=== PATIENT | male | born 1995 | race Caucasian/White ===

== ENCOUNTER 2017-09-23 14:06 | Emergency (ER) | payer BC, OTHER ==
[~2017-09-23] VITALS: Ht 172.7 cm; Wt 146.0 kg
[~2017-09-23 14:06] MED LIST: ABL/15 PO; HYDR50CA2 PO; OXYC-57 PO; TOPI200T20 PO
[2017-09-23 14:12] VITALS: Ht 172.7 cm; Wt 146.0 kg
[2017-09-23 15:39] LABS: HEMATOCRIT 45.6 % (42-52); MEAN CORPUSCULAR HEMOGLOBIN 30.9 pg (25-34); MEAN CORPUSCULAR HGB CONC 35.1 g/dl (32-36); MEAN PLATELET VOLUME 8.7 fL (7.4-10.4); PLATELET COUNT 266 K/uL (130-400); RED CELL DISTRIBUTION WIDTH CV 13.4 % (11.5-14.5); RED CELL DISTRIBUTION WIDTH SD 43.4 fL (36.4-46.3); WHITE BLOOD COUNT 12.15 K/uL (4.8-10.8)
[2017-09-23 15:57] LABS: ALBUMIN 3.9 gm/dl (3.4-5.0); ALT/SGPT 58 U/L (12-78); BLOOD UREA NITROGEN 14 mg/dl (7-18); CALCIUM 8.7 mg/dl (8.5-10.1); CARBON DIOXIDE 21 mmol/L (21-32); CREATININE 0.97 mg/dl (0.60-1.40); GLUCOSE 119 mg/dl (70-99); POTASSIUM 3.7 mmol/L (3.5-5.1); SODIUM 139 mmol/L (136-145)
[2017-09-23 16:08] LABS: ALKALINE PHOSPHATASE 63 U/L (45-117); AST/SGOT 22 U/L (15-37); TOTAL PROTEIN 7.9 gm/dl (6.4-8.2)
[2017-09-23 17:55] VITALS: BP 167/82; PULSE 80; O2SAT 96
--- NOTE | 2017-10-06 17:46 | EMERGENCY ROOM VISIT NOTE ---
History Report prepared by Phylicia: Renato Humphries Under the Supervision of: Dr. Marco Thorne M.D. First contact with patient: 14:54 Chief Complaint: MENTAL HEALTH EVALUATION Stated Complaint: PARANOIA History of Present Illness The patient is a 22 year old male who presents to the Emergency Room with complaints of worsening paranoia beginning a few years ago. The patient states he has been experiencing paranoia for the past few years, but it has worsened over the last month. He reports he hears auditory hallucinations that are not threatening but tell him bad things about other people. The patient notes he will hear voices talking to him in [place]. He denies suicidal ideations, homicidal ideations, and missing a dose of his medication. The patient states he tried taking supplements such as Clear Muscle, Muscle Tech, and Muscle Builder a month ago, but he stopped a week ago because he they were causing his symptoms to worsen. He reports they did not have creatine in them because it used to make him angry. The patient notes about 6 days ago he stopped abusing Benadryl. He states he would take a whole box of 36 pills at one time to get high. The patient reports he does not abuse any other medication. He notes he has been having headaches but he has a history of migraines. He denies any trauma. The patient states he has a history of a left testicular cyst that causes him discomfort. He reports he drank alcohol a week ago. The patient denies fevers. The patient's girlfriend states he has a history of schizo-affective disorder and bipolar disorder. She reports the soonest the patient could be evaluated by his psychologist would be in two weeks. The girlfriend notes the patient has not seen his psychologist since the onset of this paranoia. She states he accuses her of doing thing she didn't such as talking to somebody on Facebook. The girlfriend reports he hears things in the ceiling that are not there. Source of History: patient, spouse/significant other Onset: few years ago Position: other (global) Quality: other (paranoia) Timing: worsening (over the past month) Associated Symptoms: + headache, No fevers Note: Associated symptoms: auditory hallucination Denies: SI, HI, and missing a dose of medication Review of Systems See HPI for pertinent positives & negatives. A total of 10 systems reviewed and were otherwise negative. Past Medical & Surgical Medical Problems: (1) Alcohol Abuse-Unspec (2) Bipolar disorder (3) Cannabis Abuse-Unspec (4) Suicidal Ideation (5) Tobacco Use Disorder Surgical Problems: (1) History of tonsillectomy Family History Diabetes mellitus Heart disease Hypertension Social History Smoking Status: Current Every Day Smoker Alcohol Use: heavy Drug Use: marijuana Marital Status: single Housing Status: lives with friends Occupation Status: unemployed Current/Historical Medications Scheduled Aripiprazole (Abilify), 15 MG PO DAILY Topiramate (Topamax), 200 MG PO BID Allergies Coded Allergies: No Known Allergies (Unverified , 09/23/17) Physical Exam Vital Signs Date Time Temp Pulse Resp B/P (MAP) Pulse Ox O2 Delivery O2 Flow Rate FiO2 09/23/17 17:55 80 16 167/82 96 09/23/17 17:01 78 16 142/69 99 Room Air Physical Exam Constitutional: Vital signs reviewed. Eyes: Pupils are equal round reactive to light. Conjunctiva are noninjected. ENT: Pharynx is clear without erythema or exudate. Mucous membranes are moist. Neck supple without meningeal signs. Respiratory: Clear to auscultation bilaterally. Breath sounds are equal bilaterally. Cardiovascular: Regular rate and rhythm. No rubs or gallops. GI: Soft, nondistended and nontender. Bowel sounds are present. Musculoskeletal: No peripheral edema. No lower extremity tenderness. Integumentary: No cyanosis. Neurological: The patient is awake and alert. No focal deficits. Psychiatric: Anxious, flattened affect. Medical Decision & Procedures Laboratory Results 09/23/17 15:27 09/23/17 15:27 Test 09/23/17 14:20 09/23/17 15:27 Urine Opiates Screen NEG (NEG) Urine Methadone, Qualitative NEG (NEG) Urine Barbiturates NEG (NEG) Urine Phencyclidine (PCP) Level NEG (NEG) Ur Amphetamine/Methamphetamine NEG (NEG) MDMA (Ecstasy) Screen NEG (NEG) Urine Benzodiazepines Screen NEG (NEG) Urine Cocaine Metabolite NEG (NEG) Urine Marijuana (THC) NEG (NEG) Red Blood Count 5.18 M/uL (4.7-6.1) Mean Corpuscular Volume 88.0 fL (80-100) Mean Corpuscular Hemoglobin 30.9 pg (25-34) Mean Corpuscular Hemoglobin Concent 35.1 g/dl (32-36) RDW Standard Deviation 43.4 fL (36.4-46.3) RDW Coefficient of Variation 13.4 % (11.5-14.5) Mean Platelet Volume 8.7 fL (7.4-10.4) Anion Gap 6.0 mmol/L (3-11) Est Creatinine Clear Calc Drug Dose 166.6 ml/min Estimated GFR () 127.0 Estimated GFR (Non- 109.6 BUN/Creatinine Ratio 14.9 (10-20) Calcium Level 8.7 mg/dl (8.5-10.1) Total Bilirubin 0.3 mg/dl (0.2-1) Direct Bilirubin < 0.1 mg/dl (0-0.2) Aspartate Amino Transf (AST/SGOT) 22 U/L (15-37) Alanine Aminotransferase (ALT/SGPT) 58 U/L (12-78) Alkaline Phosphatase 63 U/L (45-117) Total Protein 7.9 gm/dl (6.4-8.2) Albumin 3.9 gm/dl (3.4-5.0) Thyroid Stimulating Hormone (TSH) 1.160 uIu/ml (0.300-4.500) Salicylates Level 2.6 mg/dl (2.8-20) Acetaminophen Level < 2 ug/ml (10-30) Ethyl Alcohol mg/dL < 3.0 mg/dl (0-3) Laboratory results as reviewed by me. ECG Indication: other (Antihistamine abuse) Rate (beats per minute): 88 Rhythm: normal sinus Findings: no ectopy, other (No widening of the QRS) ED Course 1458: The patient was evaluated in room A06. A complete history and physical exam was performed. 1739: Mental health case management evaluated the patient. He does not meet any criteria for admission. His paranoia is not dangerous, and he has not command hallucinations. He was able to get an appointment with [facility] today, but as they were pulling into the parking lot, they cancelled the appointment. I discussed today's findings with him. He and his girlfriend verbalized agreement of the treatment plan. The patient was discharged home. Medical Decision This is a 22-year-old male who presents for mental health evaluation. I did perform a limited focused review of portions of the patient's old chart on the electronic medical record. The patient has had no recent pertinent visits to this hospital. I did evaluate the patient as noted above. I did order and review the patient's blood work as noted in the electronic medical record. I did medically clear the patient. The patient is presenting with chronic paranoid thoughts and auditory hallucinations. He has had no suicidal or homicidal ideation. He was evaluated by the mental health caser who did not feel the patient met requirement for inpatient psychiatric care. She was able to secure him an appointment with [facility]. The patient was discharged in good condition. Impression Primary Impression: Schizoaffective disorder, unspecified condition Scribe Attestation The scribe's documentation has been prepared under my direct and personally reviewed by me in its entirety. I confirm that the note above accurately reflects all work, treatment, procedures, and medical decision making performed by me. Departure Information Dispostion Home / Self-Care Referrals No Doctor, Assigned (PCP) Forms HOME CARE DOCUMENTATION FORM, IMPORTANT VISIT INFORMATION Patient Instructions My [facility] Additional Instructions You have been examined and treated today on an emergency basis only. This is not a substitute for, or an effort to provide, complete comprehensive medical care. It is impossible to recognize and treat all injuries or illnesses in a single emergency department visit. It is therefore important that you follow up closely with your counselor. Call as soon as possible for an appointment. Return for worsening symptoms or if you develop thoughts of hurting yourself or others or any other concerning symptoms.
== END 2017-09-23 17:57 | disposition home or self-care (01) ==
LOC: C.EDB 14:08 → C.EDA 17:57
DX: F25.9 Schizoaffective disorder, unspecified (principal); F31.9 Bipolar disorder, unspecified; F17.200 Nicotine dependence, unspecified, uncomplicated; Z98.890 Other specified postprocedural states; Z79.899 Other long term (current) drug therapy; Z83.3 Family history of diabetes mellitus; Z82.49 Family history of ischemic heart disease and other diseases of the circulatory system

== ENCOUNTER → 2017-10-13 | Outpatient (CLI) | payer BC, OTHER ==
[~2017-10-13] MED LIST changes: -HYDR50CA2 PO; -OXYC-57 PO
== END | disposition home or self-care (01) ==
LOC: C.LABSPEC 17:10
PROVIDERS: ATTEND Nurse Practitioner Adult Health
DX: N45.1 Epididymitis (principal)

== ENCOUNTER → 2017-10-19 | Outpatient (CLI) | payer BC, OTHER ==
--- NOTE | 2017-10-19 11:48 | DIAGNOSTIC IMAGING REPORT ---
ABDOMEN COMPLETE (US) CLINICAL HISTORY: 22 years-old Male presenting with TESTICULAR PAIN [id number], bleeding. TECHNIQUE: Real-time grayscale and limited color Doppler ultrasound imaging of the abdomen was performed. COMPARISON: None. FINDINGS: Pancreas: Visualized portions of the pancreatic head and body normal. Liver: Moderately hyperechogenic parenchyma with partial obscuration of the right hemidiaphragm, likely indicating moderate steatosis. Hypoechoic echogenicity of the gallbladder fossa likely fatty sparing. Main portal vein patent with normal directional flow. Biliary: No intrahepatic biliary ductal dilatation. Common bile duct measures up to 5 mm in diameter. Gallbladder: No evidence of gallstones, gallbladder wall thickening, gallbladder distention, or pericholecystic fluid or inflammatory change. Spleen: Normal in echogenicity and size, measuring 12.5 cm in length. Kidneys: Normal in size and echogenicity. Right kidney measures 12.8 cm, and left kidney measures 12.1 cm. No hydronephrosis. Bladder: Under distended. Ureteral jets not visualized. Vasculature: Visualized portions of the IVC and abdominal aorta normal. Overall limited visualization of the aorta secondary to bowel gas. Ascites: None. IMPRESSION: 1. Hepatic steatosis. 2. Otherwise normal sonographic examination of the abdomen. Electronically signed by: Braden Cardoza M.D. 10/19/2017 11:46 AM Dictated Date/Time: 10/19/2017 11:44 AM
--- NOTE | 2017-10-19 11:49 | DIAGNOSTIC IMAGING REPORT ---
TESTICULAR ULTRASOUND HISTORY: TESTICULAR PAIN [id number] COMPARISON: Testicular ultrasound 09/14/2016. FINDINGS: Right testis: 4.4 x 3.1 x 2.1 cm. There are no intratesticular masses. Normal color flow. No hydrocele. The epididymis demonstrates a 5 mm cyst at the head. This remains unchanged. Left testis: 4.5 x 2.9 x 2.1 cm. There are no intratesticular masses. Normal color flow. No hydrocele. A 2 mm cyst within the epididymal head. IMPRESSION: 1. Normal bilateral testes. 2. Small bilateral abnormal head cyst. Electronically signed by: Choco Schroeder M.D. 10/19/2017 11:48 AM Dictated Date/Time: 10/19/2017 11:42 AM
== END | disposition home or self-care (01) ==
LOC: C.ULTR 10:04
PROVIDERS: ATTEND Nurse Practitioner Adult Health
DX: N50.819 Testicular pain, unspecified (principal)

== ENCOUNTER 2017-10-23 21:32 | Emergency (ER) | payer BC, OTHER ==
[~2017-10-23] VITALS: Ht 172.7 cm; Wt 149.6 kg
[2017-10-23 21:35] VITALS: TEMP 36.9; Ht 172.7 cm; Wt 149.6 kg
[2017-10-23 22:27] LABS: BASO % 0.3 %; BASO ABS # 0.04 K/uL (0-0.2); EOS % 2.5 %; EOS ABS # 0.34 K/uL (0-0.5); IG# 0.07 K/uL (0.00-0.02); LYMPH % 27.3 %; LYMPH ABS # 3.67 K/uL (1.2-3.4); MEAN CELL VOLUME 87.6 fL (80-100); MEAN CORPUSCULAR HEMOGLOBIN 30.5 pg (25-34); MEAN CORPUSCULAR HGB CONC 34.8 g/dl (32-36); MEAN PLATELET VOLUME 8.8 fL (7.4-10.4); MONO % 4.9 %; MONO ABS # 0.66 K/uL (0.11-0.59); NEUT % 64.5 %; NEUT ABS # 8.65 K/uL (1.4-6.5); PLATELET COUNT 252 K/uL (130-400); RED CELL DISTRIBUTION WIDTH CV 13.3 % (11.5-14.5); RED CELL DISTRIBUTION WIDTH SD 42.2 fL (36.4-46.3); WHITE BLOOD COUNT 13.43 K/uL (4.8-10.8)
[2017-10-23 23:00] LABS: ALBUMIN 4.1 gm/dl (3.4-5.0); BLOOD UREA NITROGEN 18 mg/dl (7-18); CALCIUM 9.1 mg/dl (8.5-10.1); CARBON DIOXIDE 20 mmol/L (21-32); CREATININE 1.02 mg/dl (0.60-1.40); GLUCOSE 102 mg/dl (70-99); POTASSIUM 3.7 mmol/L (3.5-5.1); SODIUM 141 mmol/L (136-145)
[2017-10-23 23:10] LABS: ALKALINE PHOSPHATASE 72 U/L (45-117); ALT/SGPT 56 U/L (12-78); AST/SGOT 25 U/L (15-37); TOTAL PROTEIN 8.3 gm/dl (6.4-8.2)
--- NOTE | 2017-10-23 23:20 | EMERGENCY ROOM VISIT NOTE ---
History Report prepared by Phylicia: Eduardo Nolasco Under the Supervision of: Dr. Leo Coello M.D. First contact with patient: 21:45 Chief Complaint: MENTAL HEALTH EVALUATION Stated Complaint: SUICIDAL History of Present Illness The patient is a 22 year old white male with a past medical history of schizophrenia and bipolar disorder who presents to the ED with a cc of worsening depression beginning 5 days ago. Positive smoking and tobacco use. Negative alcohol use. The patient states that he went to see his psychiatrist 5 days ago who wanted to increase his medication. He reports that he wanted to decrease his medication of Abilify and Topamax, which he has been doing. The patient is accompanied by his girlfriend who states that the psychiatrist told him to get checked into inpatient if his symptoms worsen. The patient states that he has been taking half of his normal amount of medication this week. He reports that he has been hearing voices that are not there. The patient states that at times there are more than one voice. He reports that someone could actually be talking, but he would hear someone else. The patient states that he has also been feeling more depressed. He reports that he does not feel safe, but denies a plan for suicide. The patient admits that he tried to hurt himself in the past by trying to cut his throat after abusing Adderall and alcohol. Source of History: patient, spouse/significant other Onset: 5 days ago Position: other (global) Quality: other (global) Timing: worsening Modifying Factors (Relieving): other (Abilify, Topamax) Review of Systems See HPI for pertinent positives and negatives. A total of ten systems were reviewed and were otherwise negative. Past Medical & Surgical Medical Problems: (1) Alcohol Abuse-Unspec (2) Bipolar disorder (3) Cannabis Abuse-Unspec (4) Suicidal Ideation (5) Tobacco Use Disorder Surgical Problems: (1) History of tonsillectomy Family History Diabetes mellitus Heart disease Hypertension Social History Smoking Status: Current Every Day Smoker Alcohol Use: heavy Drug Use: marijuana Marital Status: single Housing Status: lives with friends Occupation Status: unemployed Current/Historical Medications Scheduled Aripiprazole (Abilify), 7.5 MG PO DAILY Topiramate (Topamax), 100 MG PO BID Allergies Coded Allergies: No Known Allergies (Unverified , 10/23/17) Physical Exam Vital Signs Date Time Temp Pulse Resp B/P (MAP) Pulse Ox O2 Delivery O2 Flow Rate FiO2 10/23/17 21:35 36.9 84 18 149/93 98 Room Air Physical Exam GENERAL: Awake, alert, well-appearing, NAD, obese, multiple tattoos HENT: Normocephalic, atraumatic. EYES: Normal conjunctiva. Sclera non-icteric. NECK: Supple. No nuchal rigidity. FROM. RESPIRATORY: CTAB, no rhonchi, wheezing, crackles CARDIAC: RRR, no MRG ABDOMEN: Soft, NTND, BS+ MSK: No chest wall TTP, no LE edema NEURO: GCS 15, CN 2-12 intact, moves all 4s on command SKIN: No rash or jaundice noted. PSYCH: Slow to respond. Limited attention. SI without plan. No HI. Positive AVH. Medical Decision & Procedures Laboratory Results 10/23/17 12:08 Red Blood Count 5.25, Mean Corpuscular Volume 87.6, Mean Corpuscular Hemoglobin 30.5, Mean Corpuscular Hemoglobin Concent 34.8, Mean Platelet Volume 8.8, Neutrophils (%) (Auto) 64.5, Lymphocytes (%) (Auto) 27.3, Monocytes (%) (Auto) 4.9, Eosinophils (%) (Auto) 2.5, Basophils (%) (Auto) 0.3, Neutrophils # (Auto) 8.65, Lymphocytes # (Auto) 3.67, Monocytes # (Auto) 0.66, Eosinophils # (Auto) 0.34, Basophils # (Auto) 0.04 10/23/17 22:18 Test 10/23/17 12:08 10/23/17 22:10 10/23/17 22:17 10/23/17 22:18 White Blood Count 13.43 K/uL (4.8-10.8) Red Blood Count 5.25 M/uL (4.7-6.1) Hemoglobin 16.0 g/dL (14.0-18.0) Hematocrit 46.0 % (42-52) Mean Corpuscular Volume 87.6 fL (80-100) Mean Corpuscular Hemoglobin 30.5 pg (25-34) Mean Corpuscular Hemoglobin Concent 34.8 g/dl (32-36) Platelet Count 252 K/uL (130-400) Mean Platelet Volume 8.8 fL (7.4-10.4) Neutrophils (%) (Auto) 64.5 % Lymphocytes (%) (Auto) 27.3 % Monocytes (%) (Auto) 4.9 % Eosinophils (%) (Auto) 2.5 % Basophils (%) (Auto) 0.3 % Neutrophils # (Auto) 8.65 K/uL (1.4-6.5) Lymphocytes # (Auto) 3.67 K/uL (1.2-3.4) Monocytes # (Auto) 0.66 K/uL (0.11-0.59) Eosinophils # (Auto) 0.34 K/uL (0-0.5) Basophils # (Auto) 0.04 K/uL (0-0.2) RDW Standard Deviation 42.2 fL (36.4-46.3) RDW Coefficient of Variation 13.3 % (11.5-14.5) Immature Granulocyte % (Auto) 0.5 % Immature Granulocyte # (Auto) 0.07 K/uL (0.00-0.02) Urine Color YELLOW Urine Appearance CLEAR (CLEAR) Urine pH 5.0 (4.5-7.5) Urine Specific [place] 1.030 (1.000-1.030) Urine Protein NEG (NEG) Urine Glucose (UA) NEG (NEG) Urine Ketones NEG (NEG) Urine Occult Blood NEG (NEG) Urine Nitrite NEG (NEG) Urine Bilirubin NEG (NEG) Urine Urobilinogen NEG (NEG) Urine Leukocyte Esterase NEG (NEG) Urine Opiates Screen NEG (NEG) Urine Methadone, Qualitative NEG (NEG) Urine Barbiturates NEG (NEG) Urine Phencyclidine (PCP) Level NEG (NEG) Ur Amphetamine/Methamphetamine NEG (NEG) MDMA (Ecstasy) Screen NEG (NEG) Urine Benzodiazepines Screen NEG (NEG) Urine Cocaine Metabolite NEG (NEG) Urine Marijuana (THC) NEG (NEG) Bedside Glucose 115 mg/dl (70-99) Anion Gap 9.0 mmol/L (3-11) Est Creatinine Clear Calc Drug Dose 160.7 ml/min Estimated GFR () 119.5 Estimated GFR (Non- 103.1 BUN/Creatinine Ratio 17.5 (10-20) Calcium Level 9.1 mg/dl (8.5-10.1) Total Bilirubin 0.3 mg/dl (0.2-1) Direct Bilirubin < 0.1 mg/dl (0-0.2) Aspartate Amino Transf (AST/SGOT) 25 U/L (15-37) Alanine Aminotransferase (ALT/SGPT) 56 U/L (12-78) Alkaline Phosphatase 72 U/L (45-117) Total Protein 8.3 gm/dl (6.4-8.2) Albumin 4.1 gm/dl (3.4-5.0) Thyroid Stimulating Hormone (TSH) 2.410 uIu/ml (0.300-4.500) Salicylates Level 2.9 mg/dl (2.8-20) Acetaminophen Level < 2 ug/ml (10-30) Ethyl Alcohol mg/dL < 3.0 mg/dl (0-3) Laboratory results reviewed by mt ED Course 2158: The patient was evaluated in room A02. A complete history and physical exam was performed. 0015: The patient is medically clear for voluntary admission. 0230: The patient was signed out to Dr. Koroma. Medical Decision Triage Nursing notes reviewed. The patient is a 22 year old white male with a past medical history of schizophrenia and bipolar disorder who presents to the ED with a cc of worsening depression beginning 5 days ago. The patient's presentation and history were concerning for etiologies such as mood disorder, infection, hypoglycemia, electrolyte abnormalities, cardiac sources, intracerebral event, toxicologic, neurologic, as well as others were entertained. Patient was seen and evaluated the bedside. Patient does have a prior history of mental health disorders and the patient has tried to decrease medications even though his psychiatrist recommended not to. Patient does have a flattened affect does have some issues with attention. Patient does use tobacco. Patient is complaining of suicidal ideation but without plan. He does have audio and visual hallucinations. Patient did have blood work completed along with urinalysis and tox screen. Patient's blood work is fairly unremarkable and the patient's tox screen is negative. He was medically cleared. Patient was accepted to the [facility] for voluntary inpatient psychiatric treatment. Patient was transferred. Medication Reconcilliation Current Medication List: was personally reviewed by mt Blood Pressure Screening Patient's blood pressure: Elevated blood pressure Blood pressure disposition: Elevated BP felt to be situational Impression Primary Impression: Suicidal ideation Additional Impressions: Depression Encounter for smoking cessation counseling Scribe Attestation The scribe's documentation has been prepared under my direction and personally reviewed by me in its entirety. I confirm that the note above accurately reflects all work, treatment, procedures, and medical decision making performed by me. Departure Information Dispostion Discharge/Transfer to [facility] Referrals No Doctor, Assigned (PCP) Patient Instructions My [facility] Problem Qualifiers Additional Impressions: Depression Depression Type: unspecified Qualified Codes: F32.9 - Major depressive disorder, single episode, unspecified
[2017-10-24 02:00] VITALS: BP 134/87; PULSE 71; O2SAT 97
== END 2017-10-24 02:02 | disposition short-term general hospital (02) ==
LOC: C.EDB 21:33 → C.EDA 10-24 02:02
DX: R45.851 Suicidal ideations (principal); F25.9 Schizoaffective disorder, unspecified; F31.9 Bipolar disorder, unspecified; F32.9 Major depressive disorder, single episode, unspecified; F17.200 Nicotine dependence, unspecified, uncomplicated; F12.90 Cannabis use, unspecified, uncomplicated; Z79.899 Other long term (current) drug therapy

== ENCOUNTER 2017-11-21 17:55 | Emergency (ER) | payer BC, OTHER ==
[~2017-11-21] VITALS: Ht 174 cm; Wt 148.9 kg
[2017-11-21 17:58] VITALS: TEMP 37; Ht 174 cm; Wt 148.9 kg
--- NOTE | 2017-11-21 18:34 | EMERGENCY ROOM VISIT NOTE ---
History Report prepared by Phylicia: Em Liriano Under the Supervision of: Dr. Leo Coello M.D. First contact with patient: 18:03 Chief Complaint: OVERDOSE (INTENTIONAL) Stated Complaint: TOOK TOO MUCH MEDICATIONS, MOOD SWINGS History of Present Illness The patient is a 22 year old white male with a past medical history of alcohol abuse, BPD, and illicit drug use who presents to the ED with complaints of persistent drug abuse since four days ago. Positive for auditory hallucinations. Negative thoughts of self harm or thoughts of harming others. He states that he took 20 tablets of 1 mg Ativan yesterday at 0200. He also reports taking 8 tablets of 25 mg Benadryl before 1200 today. He reports taking Flexeril as well. He denies any thoughts of self harm or thoughts of harming others. He denies any use of Ibuprofen. He recalls hearing his father this morning. He states that what he is hearing is positive and not negative voices. He denies any pain. He denies any leg swelling. He recently left the [facility] two weeks ago. Per case management the patient inhaled Ativan and Flexeril intranasally four days ago. Source of History: patient Onset: four days ago Position: other (global ) Quality: other (drug abuse) Timing: other (persistent) Note: Notes auditory hallucinations. Denies any thoughts of self harm or thoughts of harming others. Denies any pain or leg swelling. Review of Systems See HPI for pertinent positives and negatives. A total of ten systems were reviewed and were otherwise negative. Past Medical & Surgical Medical Problems: (1) Alcohol Abuse-Unspec (2) Bipolar disorder (3) Cannabis Abuse-Unspec (4) Suicidal Ideation (5) Tobacco Use Disorder Surgical Problems: (1) History of tonsillectomy Family History Diabetes mellitus Heart disease Hypertension Social History Smoking Status: Current Every Day Smoker Alcohol Use: heavy Drug Use: marijuana, other (Ativan/Flexeril/Benadryl) Marital Status: in relationship Housing Status: lives with significant other Occupation Status: unemployed Current/Historical Medications Scheduled Topiramate (Topamax), 200 MG PO BID [Prolixin], 1 TAB PO BID Allergies Coded Allergies: No Known Allergies (Unverified , 11/21/17) Physical Exam Vital Signs Date Time Temp Pulse Resp B/P (MAP) Pulse Ox O2 Delivery O2 Flow Rate FiO2 11/21/17 19:38 99 23 136/76 96 11/21/17 18:35 97 Room Air 11/21/17 18:26 105 11/21/17 17:58 37.0 110 20 153/87 95 Room Air Physical Exam GENERAL: Awake, alert, well-appearing, NAD. Obese. HENT: Normocephalic, atraumatic. EYES: Normal conjunctiva. Sclera non-icteric. NECK: Supple. No nuchal rigidity. FROM. RESPIRATORY: CTAB, no rhonchi, wheezing, crackles CARDIAC: Tachycardic and regular rhythm, no MRG ABDOMEN: Soft, NTND, BS+ MSK: No chest wall TTP, no LE edema NEURO: GCS 15, CN 2-12 intact, moves all 4s on command SKIN: No rash or jaundice noted. PSYCH: Flat affect. Monotone voice. Occasionally tearful. Medical Decision & Procedures ED Course 1818: The patient was evaluated in room A8. A complete history and physical exam was performed. 1914: I spoke with Kenyon, Psychiatric Development Geologist. We discussed the patient's case. He stated that the the patient does not meet any acute inpatient treatment needs. The patient will be discharged home. Medical Decision The patient is a 22 year old white male with a past medical history of alcohol abuse, BPD, and illicit drug use who presents to the ED with complaints of persistent drug abuse since four days ago. Prior records/ancillary studies reviewed. Triage Nursing notes reviewed. The patient's history was concerning for possible psychiatric disturbance. Differential diagnosis: Etiologies such as mood disorder, infection, hypoglycemia, electrolyte abnormalities, cardiac sources, intracerebral event, toxicologic, neurologic, as well as others were entertained. Patient was seen and evaluated the bedside. Patient is a 22-year-old does have a known psychiatric history. Purportedly the patient did snort Ativan yesterday. The patient also noted taking 8 Benadryl tablets around noon. 25 mg. Patient denies any acute symptomatical complaints. Patient denies any visual hallucinations, SI, or HI. The patient does state that he occasionally does hear his father and it is usually positive words. They are not negative words. The patient is about 12 days out from a recent 16 day inpatient stay at the [facility]. Given his lack of acute concerns for harm to self other than his drug abuse, patient does not state that he has any suicidal ideation even passively. We did discuss that the patient should not abuse his medications but she should use them as prescribed and to help him. The mental health specialist did also evaluate the patient. The mental specialists stated that the patient did not meet any acute inpatient treatment needs. The patient repeatedly denied any SI or HI. The girlfriend at bedside also stated that the patient has not had any SI or HI since his discharge from from the [facility]. Follow-up patient did suddenly release and his paperwork will be sent to his primary psychiatrist in order to inform them that the patient is abusing his medications. The patient was told to stop doing this. Patient was deemed suitable for outpatient follow-up and treatment at this time. Patient was given strict follow-up, discharge, and return precautions. All questions were answered. Patient was deemed suitable for outpatient follow-up at this time. Patient agreed with the plan of care and was safely discharged home. Medication Reconcilliation Current Medication List: was personally reviewed by me Blood Pressure Screening Patient's blood pressure: Elevated blood pressure Blood pressure disposition: Referred to PCP Impression Primary Impression: Drug abuse Scribe Attestation The scribe's documentation has been prepared under my direction and personally reviewed by me in its entirety. I confirm that the note above accurately reflects all work, treatment, procedures, and medical decision making performed by me. Departure Information Dispostion Home / Self-Care Referrals No Doctor, Assigned (PCP) Forms HOME CARE DOCUMENTATION FORM, IMPORTANT VISIT INFORMATION, WORK / SCHOOL INSTRUCTIONS Patient Instructions ED Drug Abuse General, [facility] Additional Instructions Please return to the emergency department if you have worsening or recurrent symptoms not amenable to at-home treatment. Please call for a follow-up appointment with her primary care physician. Please take your medications as prescribed. If you have other concerns and/or complaints please feel free to also call your primary care physician's office or return the ED for further evaluation, management, and treatment. You were found to have an elevated blood pressure today (>120 sytolic or >90 diastolic). Per medicare guidelines, you need to follow up with this blood pressure screening with your Primary Care Physician (PCP). For a new PCP call [phone]. Take your medications as prescribed. Please do not abuse them. You have been examined and treated today on an emergency basis only. This is not a substitute for, or an effort to provide, complete comprehensive medical care. It is impossible to recognize and treat all injuries or illnesses in a single emergency department visit. It is therefore important that you follow up closely with [facility], your PCP, and/or your specialist(s). Call as soon as possible for an appointment. Thank you for your time and consideration. I look forward to speaking with you again soon. Please don't hesitate to call us if you have any questions.
[2017-11-21 18:35] VITALS: O2SAT 97
[2017-11-21] MEDS ORDERED: PROLIXIN PO (19:18)
[2017-11-21 19:38] VITALS: BP 136/76; PULSE 99; O2SAT 96
== END 2017-11-21 19:39 | disposition home or self-care (01) ==
LOC: C.EDB 17:56 → C.EDA 19:39
DX: F19.10 Other psychoactive substance abuse, uncomplicated (principal); R03.0 Elevated blood-pressure reading, without diagnosis of hypertension; F10.10 Alcohol abuse, uncomplicated; F31.9 Bipolar disorder, unspecified; F12.10 Cannabis abuse, uncomplicated; F17.200 Nicotine dependence, unspecified, uncomplicated; Z86.59 Personal history of other mental and behavioral disorders

== ENCOUNTER 2017-11-24 11:38 | Emergency (ER) | payer BC, OTHER ==
[~2017-11-24] VITALS: Ht 172.7 cm; Wt 145.0 kg
[~2017-11-24 11:38] MED LIST changes: -ABL/15 PO; +PROLIXIN PO
[2017-11-24 11:42] VITALS: BP 178/95; TEMP 36.8; Ht 172.7 cm; Wt 145.0 kg
[2017-11-24] MEDS ORDERED: DIVA500T5 PO (12:01)
[2017-11-24] MEDS ORDERED: PRAZ1CAP PO (12:01)
[2017-11-24] MEDS ORDERED: PERP4TAB37 PO (12:01)
--- NOTE | 2017-11-24 13:37 | EMERGENCY ROOM VISIT NOTE ---
History Report prepared by Phylicia: Tani Shoemaker Under the Supervision of: Dr. Leo Coello M.D. First contact with patient: 11:52 Chief Complaint: MENTAL HEALTH EVALUATION Stated Complaint: MEDS ACTING UP MANIC EPISODE History of Present Illness The patient is a 22 year old white male with a past medical history of bipolar disorder who presents to the ED with a violent outburst episode this morning. Positive constipation. Negative suicidal or homicidal ideations, hallucinations , chest pain, abdominal pain, urinary symptoms. Per the psych case supervisor, the patient was seen here 3 days ago after he snorted Ativan and took 8 of his significant other's Flexeril. The patient says that it was not a suicide attempt , but just wanted to "relax". He was recently sent home from the [facility] 2 days ago, and was prescribed Topamax 200 mg BID and Prolixin 10 mg BID. He has been taking those medications. Per the patient's significant other, the patient "flipped out" this morning at home and broke a cedar chest. The patient says that he is here in order to receive something that will calm him down. The patient states that he currently "feels weird". Source of History: patient, spouse/significant other, other (psych case supervisor) Onset: This morning Position: other (global) Symptom Intensity: broke cedar chest Quality: other (violent outburst) Timing: other (episode) Associated Symptoms: No chest pain, No abdominal pain, No urinary symptoms Note: Positive constipation. Negative SI or HI, hallucinations. Review of Systems See HPI for pertinent positives and negatives. A total of ten systems were reviewed and were otherwise negative. Past Medical & Surgical Medical Problems: (1) Alcohol Abuse-Unspec (2) Bipolar disorder (3) Cannabis Abuse-Unspec (4) Suicidal Ideation (5) Tobacco Use Disorder Surgical Problems: (1) History of tonsillectomy Family History Diabetes mellitus Heart disease Hypertension Social History Smoking Status: Current Every Day Smoker Alcohol Use: heavy Drug Use: marijuana, other Marital Status: in relationship Housing Status: lives with significant other Occupation Status: unemployed Current/Historical Medications Scheduled Divalproex Sodium (Depakote Delay Rel), 500 MG PO TID Perphenazine (Trilafon), 4 MG PO BID Prazosin Hcl (Minipress), 1 MG PO HS Allergies Coded Allergies: No Known Allergies (Unverified , 11/21/17) Physical Exam Vital Signs Date Time Temp Pulse Resp B/P (MAP) Pulse Ox O2 Delivery O2 Flow Rate FiO2 11/24/17 11:42 36.8 92 18 178/95 95 Room Air Physical Exam GENERAL: Awake, alert, well-appearing, NAD HENT: Normocephalic, atraumatic. EYES: Normal conjunctiva. Sclera non-icteric. NECK: Supple. No nuchal rigidity. FROM. RESPIRATORY: CTAB, no rhonchi, wheezing, crackles CARDIAC: RRR, no MRG ABDOMEN: Obese, soft, NTND, BS+ MSK: No chest wall TTP, no LE edema NEURO: GCS 15, CN 2-12 intact, moves all 4s on command SKIN: No rash or jaundice noted. PSYCH: Flat affect. Medical Decision & Procedures ED Course 1332: The patient was evaluated in room A5. A complete history and physical exam was performed. Discussed results and discharge instructions: he verbalized understanding and agreement. The patient is ready for discharge. Medical Decision The patient is a 22 year old white male with a past medical history of bipolar disorder who presents to the ED with a violent outburst episode this morning. Positive constipation. Negative suicidal or homicidal ideations, hallucinations , chest pain, abdominal pain, urinary symptoms. Differential diagnosis: Etiologies such as medication noncompliance, mood disorder, infection, hypoglycemia, electrolyte abnormalities, cardiac sources, intracerebral event, toxicologic, neurologic, as well as others were entertained. Patient was seen and evaluated at the bedside. Patient was seen several days ago for using his medications. Today the patient denies any SI, HI, AVH. The patient is wanting something to keep him calm. On exam the patient is not agitated. The patient has a history of abusing his medications. No medications were given at this time. She was seen and evaluated by the psych case supervisor. Patient does have follow-up with psychiatry. It was expressed to the patient that given the recent change in his medications yesterday this will take time for it to take effect. Patient was deemed suitable for outpatient follow-up at this time. The patient does have a safe place to go and does have a person with him essentially at all times which is his girlfriend who is at the bedside. This was also conveyed to her. They are in agreement with the plan of care. Patient was given strict follow-up, discharge , and return precautions. All questions were answered. Patient was deemed suitable for outpatient follow-up at this time. Patient agreed with the plan of care and was safely discharged home. Medication Reconcilliation Current Medication List: was personally reviewed by me Blood Pressure Screening Patient's blood pressure: Elevated blood pressure Blood pressure disposition: Referred to PCP Impression Primary Impression: Medication dose changed Additional Impression: Agitation Scribe Attestation The scribe's documentation has been prepared under my direction and personally reviewed by me in its entirety. I confirm that the note above accurately reflects all work, treatment, procedures, and medical decision making performed by me. Departure Information Dispostion Home / Self-Care Referrals No Doctor, Assigned (PCP) Patient Instructions My [facility] Additional Instructions Please return to the emergency department if you have worsening or recurrent symptoms not amenable to at-home treatment. Please call for a follow-up appointment with her primary care physician. Please take your medications as prescribed. If you have other concerns and/or complaints please feel free to also call your primary care physician's office or return the ED for further evaluation, management, and treatment. You were found to have an elevated blood pressure today (>120 sytolic or >90 diastolic). Per medicare guidelines, you need to follow up with this blood pressure screening with your Primary Care Physician (PCP). For a new PCP call [phone]. Take your medications as prescribed. Please follow-up with your psychiatrist. You have been examined and treated today on an emergency basis only. This is not a substitute for, or an effort to provide, complete comprehensive medical care. It is impossible to recognize and treat all injuries or illnesses in a single emergency department visit. It is therefore important that you follow up closely with [facility], your PCP, and/or your specialist(s). Call as soon as possible for an appointment. Thank you for your time and consideration. I look forward to speaking with you again soon. Please don't hesitate to call us if you have any questions. Problem Qualifiers
[2017-11-24 14:28] VITALS: PULSE 82; O2SAT 99
== END 2017-11-24 14:29 | disposition home or self-care (01) ==
LOC: C.EDB 11:40 → C.EDA 14:29
DX: R45.1 Restlessness and agitation (principal); F31.9 Bipolar disorder, unspecified; F10.10 Alcohol abuse, uncomplicated; F12.10 Cannabis abuse, uncomplicated; F17.210 Nicotine dependence, cigarettes, uncomplicated; Z79.899 Other long term (current) drug therapy; Z83.3 Family history of diabetes mellitus; Z82.49 Family history of ischemic heart disease and other diseases of the circulatory system

== ENCOUNTER 2017-12-18 19:24 | Emergency (ER) | payer BC, OTHER ==
[~2017-12-18] VITALS: Ht 172.7 cm; Wt 131.3 kg
[~2017-12-18 19:24] MED LIST changes: +DIVA500T5 PO; +PERP4TAB37 PO; +PRAZ1CAP PO; -PROLIXIN PO; -TOPI200T20 PO
[2017-12-18 19:33] VITALS: TEMP 37; Ht 172.7 cm; Wt 131.3 kg
[2017-12-18] MEDS ORDERED: KETOROLAC TROMETHAMINE 30 MG/ML VIAL IV STA (19:52)
[2017-12-18] MEDS ORDERED: SODIUM CHLORIDE 0.9% 1000ML 1,000 ML IV STA (19:52)
[2017-12-18] MEDS ORDERED: PROP10TA7 PO (19:53)
[2017-12-18] MEDS ORDERED: DIVA500T3 PO ×2 (19:53)
[2017-12-18] MEDS ORDERED: PERP1TAB5 PO (19:53)
[2017-12-18 20:14] LABS: BASO % 0.3 %; BASO ABS # 0.03 K/uL (0-0.2); EOS % 2.7 %; EOS ABS # 0.28 K/uL (0-0.5); HEMATOCRIT 44.2 % (42-52); HEMOGLOBIN 14.8 g/dL (14.0-18.0); IG# 0.47 K/uL (0.00-0.02); LYMPH ABS # 2.39 K/uL (1.2-3.4); MEAN CELL VOLUME 89.7 fL (80-100); MEAN CORPUSCULAR HGB CONC 33.5 g/dl (32-36); MEAN PLATELET VOLUME 8.7 fL (7.4-10.4); MONO % 7.8 %; MONO ABS # 0.81 K/uL (0.11-0.59); NEUT % 61.7 %; NEUT ABS # 6.39 K/uL (1.4-6.5); PLATELET COUNT 197 K/uL (130-400); RED CELL DISTRIBUTION WIDTH CV 12.9 % (11.5-14.5); RED CELL DISTRIBUTION WIDTH SD 42.3 fL (36.4-46.3); WHITE BLOOD COUNT 10.37 K/uL (4.8-10.8)
--- NOTE | 2017-12-18 20:32 | EMERGENCY ROOM VISIT NOTE ---
History Report prepared by Phylicia: Agnes Camacho Under the Supervision of: Dr. Jorge Leon M.D. First contact with patient: 19:45 Chief Complaint: TESTICULAR PAIN Stated Complaint: EXTREME TESTICLE PAIN History of Present Illness The patient is a 22 year old male who presents to the Emergency Room with complaints of intermittent left testicular pain beginning last night. He rates his pain as a 9/10. The patient took Tylenol and ibuprofen with some relief. The patient reports he has a history of two cysts inside his scrotum by each testicle. He reports this was diagnosed via an ultrasound. The patient has an appointment with Dr. Islas-Urology on Wednesday. He reports some urinary burning and abdominal pain. Per girlfriends at bedside, the patient is on "several heavy medications" for his mental health history. Source of History: patient, spouse/significant other Onset: last night Position: other (testicular) Quality: other (pain) Timing: intermittent Associated Symptoms: + abdominal pain, + urinary symptoms Review of Systems See HPI for pertinent positives and negatives. A total of ten systems were reviewed and were otherwise negative. Past Medical & Surgical Medical Problems: (1) Alcohol Abuse-Unspec (2) Bipolar disorder (3) Cannabis Abuse-Unspec (4) Suicidal Ideation (5) Tobacco Use Disorder Surgical Problems: (1) History of tonsillectomy Family History Diabetes mellitus Heart disease Hypertension Social History Smoking Status: Current Every Day Smoker Alcohol Use: heavy Drug Use: marijuana, other Marital Status: in relationship Housing Status: lives with significant other Occupation Status: unemployed Current/Historical Medications Scheduled Divalproex Sodium (Depakote Er), 1,500 MG PO HS Divalproex Sodium (Depakote Er), 1,000 MG PO AMPM Perphenazine (Trilafon), 12 MG PO AMHS Prazosin Hcl (Minipress), 1 MG PO HS Propranolol (Inderal), 10 MG PO TID Allergies Coded Allergies: No Known Allergies (Unverified , 12/18/17) Physical Exam Vital Signs Date Time Temp Pulse Resp B/P (MAP) Pulse Ox O2 Delivery O2 Flow Rate FiO2 12/18/17 22:11 84 20 149/61 97 Room Air 12/18/17 20:45 88 20 138/68 97 Room Air 12/18/17 19:33 37.0 90 20 148/84 96 Room Air Physical Exam GENERAL: Awake, alert, well-appearing, in no distress HENT: Normocephalic, atraumatic. Oropharynx unremarkable. Dry mucus membranes. EYES: Normal conjunctiva. Sclera non-icteric. NECK: Supple. No nuchal rigidity. FROM. No JVD. RESPIRATORY: Clear to auscultation. CARDIAC: Regular rate, normal rhythm. Extremities warm and well perfused. Pulses equal. ABDOMEN: Soft, non-distended. No tenderness to palpation. No rebound or guarding. No masses. RECTAL: Deferred. MUSCULOSKELETAL: Chest examination reveals no tenderness. The back is symmetrical on inspection without obvious abnormality. There is no CVA tenderness to palpation. No joint edema. LOWER EXTREMITIES: Calves are equal size bilaterally and non-tender. No edema. No discoloration. : Normal external genitalia, no ependymal tenderness, no erythema or warmth, cremasteric reflex intact. NEURO: Normal sensorium. No sensory or motor deficits noted. SKIN: No rash or jaundice noted. Medical Decision & Procedures ER Provider Diagnostic Interpretation: Radiology results as stated below per my review and radiologist interpretation: ULTRASOUND TESTES AND SCROTUM FINDINGS: The testes are normal in size and homogeneous in echotexture. The right testis measures 4.3 x 2.4 x 2.5 cm and the left testis measures 4.2 x 2.3 x 2.6 cm. No intratesticular mass is seen. Testicular blood flow is normal and symmetric. Normal Doppler waveforms are identified in both testes. The epididymal heads are normal in appearance. The right epididymal head measures 1.0 cm in length and the left epididymal head measures 0.9 cm in length. A 4 mm nodule is noted in the right epididymal head. No varicocele or hydrocele is seen. IMPRESSION: Unremarkable sonographic assessment of the testes and scrotum. Electronically signed by: Shaun Smallwood M.D. Laboratory Results 12/18/17 20:05 Red Blood Count 4.93, Mean Corpuscular Volume 89.7, Mean Corpuscular Hemoglobin 30.0, Mean Corpuscular Hemoglobin Concent 33.5, Mean Platelet Volume 8.7, Neutrophils (%) (Auto) 61.7, Lymphocytes (%) (Auto) 23.0, Monocytes (%) (Auto) 7.8, Eosinophils (%) (Auto) 2.7, Basophils (%) (Auto) 0.3, Neutrophils # (Auto) 6.39, Lymphocytes # (Auto) 2.39, Monocytes # (Auto) 0.81, Eosinophils # (Auto) 0.28, Basophils # (Auto) 0.03 12/18/17 20:05 Test 12/18/17 20:05 12/18/17 20:15 White Blood Count 10.37 K/uL (4.8-10.8) Red Blood Count 4.93 M/uL (4.7-6.1) Hemoglobin 14.8 g/dL (14.0-18.0) Hematocrit 44.2 % (42-52) Mean Corpuscular Volume 89.7 fL (80-100) Mean Corpuscular Hemoglobin 30.0 pg (25-34) Mean Corpuscular Hemoglobin Concent 33.5 g/dl (32-36) Platelet Count 197 K/uL (130-400) Mean Platelet Volume 8.7 fL (7.4-10.4) Neutrophils (%) (Auto) 61.7 % Lymphocytes (%) (Auto) 23.0 % Monocytes (%) (Auto) 7.8 % Eosinophils (%) (Auto) 2.7 % Basophils (%) (Auto) 0.3 % Neutrophils # (Auto) 6.39 K/uL (1.4-6.5) Lymphocytes # (Auto) 2.39 K/uL (1.2-3.4) Monocytes # (Auto) 0.81 K/uL (0.11-0.59) Eosinophils # (Auto) 0.28 K/uL (0-0.5) Basophils # (Auto) 0.03 K/uL (0-0.2) RDW Standard Deviation 42.3 fL (36.4-46.3) RDW Coefficient of Variation 12.9 % (11.5-14.5) Immature Granulocyte % (Auto) 4.5 % Immature Granulocyte # (Auto) 0.47 K/uL (0.00-0.02) Anion Gap 5.0 mmol/L (3-11) Est Creatinine Clear Calc Drug Dose 147.6 ml/min Estimated GFR () 118.1 Estimated GFR (Non- 101.9 BUN/Creatinine Ratio 13.4 (10-20) Calcium Level 8.6 mg/dl (8.5-10.1) Valproic Acid (Depakene) Level 89 mcg/ml (50-100) Urine Color YELLOW Urine Appearance ERROR (CLEAR) Urine pH 7.0 (4.5-7.5) Urine Specific [place] 1.028 (1.000-1.030) Urine Protein NEG (NEG) Urine Glucose (UA) 2+ (NEG) Urine Ketones 1+ (NEG) Urine Occult Blood NEG (NEG) Urine Nitrite NEG (NEG) Urine Bilirubin NEG (NEG) Urine Urobilinogen NEG (NEG) Urine Leukocyte Esterase NEG (NEG) Laboratory results reviewed by me Medications Administered Medications (Trade) Dose Ordered Sig/Hermelinda Route Start Time Stop Time Status Last Admin Dose Admin Sodium Chloride 1,000 ml @ 999 mls/hr Q1H1M STAT IV 12/18/17 19:52 12/18/17 20:52 DC 12/18/17 20:12 999 MLS/HR Ketorolac Tromethamine (Toradol Inj) 15 mg NOW STAT IV 12/18/17 19:52 12/18/17 19:56 DC 12/18/17 20:14 15 MG ED Course 1944: The patient was evaluated in room C3. A complete history and physical exam was performed. 2203: I updated the patient on his test results. 2214: I reevaluated the patient. Discussed results and discharge instructions: He verbalized understanding and agreement. The patient is ready for discharge. Medical Decision I reviewed the patient's past medical history, medications, and the nursing notes as described above. Differential diagnosis: Etiologies such as torsion, mass, infection, hernia, hydrocele, epididymitis, trauma, intra-abdominal process, as well as others were entertained. The patient is a 22-year-old gentleman who presents emergency department with left testicular pain that became worse last night in the setting of being followed by urology, Dr. Islas, for bilateral testicular cyst per hpi. On arrival the patient is no acute distress, afebrile stable vital signs. Was unable to elicit any testicular pain on exam. No erythema or warmth. Cremasteric reflex intact. Labs unremarkable including WBC within normal limits and UA negative for UTI. Testicular US unremarkable. Unclear etiology to patient's sx at this time. Findings and plan for follow-up reviewed with patient. Patient agreeable and d/c'd per discharge instructions. Medication Reconcilliation Current Medication List: was personally reviewed by me Blood Pressure Screening Patient's blood pressure: Elevated blood pressure Blood pressure disposition: Elevated BP felt to be situational Impression Primary Impression: Left testicular pain Scribe Attestation The scribe's documentation has been prepared under my direction and personally reviewed by me in its entirety. I confirm that the note above accurately reflects all work, treatment, procedures, and medical decision making performed by me. Departure Information Dispostion Home / Self-Care Referrals Georgina Hobbs M.D. (PCP) John Islas II., DO Forms HOME CARE DOCUMENTATION FORM, IMPORTANT VISIT INFORMATION, WORK / SCHOOL INSTRUCTIONS Patient Instructions ED Testicular Pain [facility], My [facility] Additional Instructions Please follow up with your urologist, Dr. Islas, on Wednesday as scheduled for re-evaluation. The cause of your symptoms is unclear at this time. Otherwise, your exam, lab results, and ultrasound did not show signs of an emergent condition at this time. Acetaminophen or ibuprofen for pain and fevers as needed. Drink plenty of fluids to ensure hydration. Return to the emergency department for worsening symptoms as described in the accompanying instructions.
[2017-12-18 20:44] LABS: CALCIUM 8.6 mg/dl (8.5-10.1); CREATININE 1.03 mg/dl (0.60-1.40); POTASSIUM 4.1 mmol/L (3.5-5.1)
--- NOTE | 2017-12-18 21:21 | DIAGNOSTIC IMAGING REPORT ---
ULTRASOUND TESTES AND SCROTUM CLINICAL HISTORY: Left testicular pain. COMPARISON STUDY: Scrotal ultrasound dated 10/19/2017. TECHNIQUE: Real-time, grayscale, and color Doppler sonography of the testes and scrotum is performed. Images are reviewed in the transverse and longitudinal planes. FINDINGS: The testes are normal in size and homogeneous in echotexture. The right testis measures 4.3 x 2.4 x 2.5 cm and the left testis measures 4.2 x 2.3 x 2.6 cm. No intratesticular mass is seen. Testicular blood flow is normal and symmetric. Normal Doppler waveforms are identified in both testes. The epididymal heads are normal in appearance. The right epididymal head measures 1.0 cm in length and the left epididymal head measures 0.9 cm in length. A 4 mm nodule is noted in the right epididymal head. No varicocele or hydrocele is seen. IMPRESSION: Unremarkable sonographic assessment of the testes and scrotum. Electronically signed by: Shaun Smallwood M.D. 12/18/2017 9:20 PM Dictated Date/Time: 12/18/2017 9:18 PM
[2017-12-18 22:11] VITALS: BP 149/61; PULSE 84; O2SAT 97
== END 2017-12-18 22:13 | disposition home or self-care (01) ==
LOC: C.EDB 19:25 → C.EDC 22:13
DX: N50.812 Left testicular pain (principal); F31.9 Bipolar disorder, unspecified; F17.200 Nicotine dependence, unspecified, uncomplicated

== ENCOUNTER → 2017-12-24 | Outpatient (CLI) | payer BC, OTHER ==
[~2017-12-24] MED LIST changes: +BUPR100T8 PO; +DIVA500T3 PO; -DIVA500T5 PO; +PERP1TAB5 PO; -PERP4TAB37 PO; +PROP10TA7 PO; +TAMS0.4C38 PO
[2017-12-24 18:10] LABS: ALBUMIN 3.7 gm/dl (3.4-5.0); ALT/SGPT 45 U/L (12-78); AST/SGOT 26 U/L (15-37); BLOOD UREA NITROGEN 20 mg/dl (7-18); CALCIUM 9.1 mg/dl (8.5-10.1); CARBON DIOXIDE 30 mmol/L (21-32); CREATININE 0.91 mg/dl (0.60-1.40); GLUCOSE 129 mg/dl (70-99); SODIUM 137 mmol/L (136-145)
[2017-12-24 18:20] LABS: ALKALINE PHOSPHATASE 51 U/L (45-117); CHOLESTEROL 197 mg/dl (0-200); TOTAL PROTEIN 7.5 gm/dl (6.4-8.2)
== END | disposition home or self-care (01) ==
LOC: C.LABPVFM 15:55
PROVIDERS: ATTEND Nurse Practitioner Family
DX: E66.01 Morbid (severe) obesity due to excess calories (principal)

== ENCOUNTER 2017-12-26 15:41 | Emergency (ER) | payer BC, OTHER ==
[~2017-12-26] VITALS: Ht 172.7 cm; Wt 158.2 kg
[~2017-12-26 15:41] MED LIST changes: -BUPR100T8 PO; +DIVA500T5 PO; +PERP4TAB37 PO; -TAMS0.4C38 PO
[2017-12-26 15:43] VITALS: TEMP 36.8; Ht 172.7 cm; Wt 158.2 kg
[2017-12-26] MEDS ORDERED: TAMS0.4C38 PO (15:56)
[2017-12-26] MEDS ORDERED: BUPR100T8 PO (15:56)
--- NOTE | 2017-12-26 16:13 | DIAGNOSTIC IMAGING REPORT ---
R HAND MIN 3 VIEWS ROUTINE CLINICAL HISTORY: Right hand pain status post trauma COMPARISON: 10/30/2015 DISCUSSION: No fractures or dislocations are visualized. IMPRESSION: No acute fractures or dislocations identified. Electronically signed by: Rohan Verdugo M.D. 12/26/2017 4:11 PM Dictated Date/Time: 12/26/2017 4:10 PM
--- NOTE | 2017-12-26 16:15 | EMERGENCY ROOM VISIT NOTE ---
ED Visit Note First contact with patient: 15:49 CHIEF COMPLAINT: Right hand injury 3-1/2 hours ago HISTORY OF PRESENT ILLNESS: Patient is a [id number] 22-year-old male who presents the emergency department accompanied by a girlfriend for evaluation of right hand pain. He states that he struck the outside of his hand on the handle of the car door in anger earlier today. He is concerned he may have broken his hand. He points to the fifth metacarpal in the midportion where he notes pain and swelling. There was also some discoloration earlier today when he washed his hands but this has resolved. He has not taken any medication or performed any interventions for his symptoms. He rates his pain a 9/10. REVIEW OF SYSTEMS: Review of systems as per HPI. All other systems reviewed were negative. At least 6 systems reviewed. PMH: Electronic medical records are reviewed and summarized as above/below. See Problem List. SOCIAL HISTORY: Patient lives at home. He is not employed. Positive tobacco use. PHYSICAL EXAM: Vital Signs: Reviewed Nurse's notes. CONSTITUTIONAL: Patient is a well-appearing 22-year-old male who is awake and alert and seated on the gurney in no acute distress. MUSCULOSKELETAL: The dorsum of the right hand slightly swollen, in the mid aspect of the fifth metacarpal. The area is slightly tender to palpation. No fracture crepitus or malalignment. The skin is intact. Flexion and extension of the fingers is full and strong. EMERGENCY DEPARTMENT COURSE: X-rays of the right hand were obtained, and negative for acute fracture. The patient was reassured. Differential diagnoses included fracture versus contusion. Medication reconciliation: I attest that I have personally reviewed the patient' s current medication list. Blood pressure screening : Patient was found to have normal blood pressure on screening and does not require follow-up. R HAND MIN 3 VIEWS ROUTINE CLINICAL HISTORY: Right hand pain status post trauma COMPARISON: 10/30/2015 DISCUSSION: No fractures or dislocations are visualized. IMPRESSION: No acute fractures or dislocations identified. Problem List Medical Problems: (1) Agitation Status: Resolved (2) Alcohol Abuse-Unspec Status: Chronic (3) Bipolar disorder Status: Chronic (4) Cannabis Abuse-Unspec Status: Chronic (5) Depression Status: Chronic (6) Drug abuse Status: Chronic (7) Encounter for medication refill Status: Resolved (8) Epididymal cyst Status: Resolved (9) Injury of right great toe Status: Resolved (10) K76.0 Status: Resolved (11) Left ankle sprain Status: Resolved (12) Left testicular pain Status: Resolved (13) Medication dose changed Status: Resolved (14) R07.9 Status: Resolved (15) Schizoaffective disorder, unspecified condition Status: Chronic (16) Suicidal ideation Status: Resolved (17) Suicidal Ideation Status: Resolved (18) Testicular pain Status: Resolved (19) Testicular/scrotal pain Status: Resolved (20) Tobacco Use Disorder Status: Resolved (21) Wrist pain, right Status: Resolved Surgical Problems: (1) History of tonsillectomy Status: Resolved Current/Historical Medications Scheduled Bupropion (Wellbutrin Sr), 100 MG PO BID Divalproex Sodium (Depakote Er), 1,500 MG PO HS Divalproex Sodium (Depakote Er), 1,000 MG PO AMPM Perphenazine (Trilafon), 12 MG PO AMHS Prazosin Hcl (Minipress), 1 MG PO HS Propranolol (Inderal), 10 MG PO TID Tamsulosin Hcl (Flomax), 0.4 MG PO HS Allergies Coded Allergies: No Known Allergies (Unverified , 12/26/17) Vital Signs Date Time Temp Pulse Resp B/P (MAP) Pulse Ox O2 Delivery O2 Flow Rate FiO2 12/26/17 16:21 83 20 130/80 94 Room Air 12/26/17 15:43 36.8 83 17 129/90 97 Room Air Departure Information Impression Primary Impression: Contusion of right hand Referrals Glenda CuencaNLindaPLinda (PCP) Patient Instructions [facility] Additional Instructions Ibuprofen(Motrin, Advil) may be used for fever or pain. Use 600mg every six hours as needed. Take with food. Avoid using more than 2400mg in a 24 hour period. Do not use 2400mg per day for more than three consecutive days without physician direction. Prolonged inappropriate use can lead to stomach upset or ulcers. This medication can be taken if you need to drive, work, or perform activities which may be dangerous when taking narcotic pain medication. (AND/OR) Acetaminophen(Tylenol) may be used for fever or pain. Use 1000mg every six hours as needed. Avoid using more than 3000mg in a 24 hour period. This medication can be taken if you need to drive, work, or perform activities which may be dangerous when taking narcotic pain medication. Ice compresses for 20 minutes at a time four times daily for 2-3 days. Activity as tolerated. Continue current medications. Return to the ER immediately for any numbness, tingling, severe pain, extreme swelling in the extremity or as needed. Followup with your family doctor or orthopedic surgery if no improvement in 5-7 days.
[2017-12-26 16:21] VITALS: BP 130/80; PULSE 83; O2SAT 94
== END 2017-12-26 16:22 | disposition home or self-care (01) ==
LOC: C.EDB 15:42 → C.EDD 16:22
DX: S60.221A Contusion of right hand, initial encounter (principal); W22.8XXA Striking against or struck by other objects, initial encounter; Z79.899 Other long term (current) drug therapy; F31.9 Bipolar disorder, unspecified; F17.200 Nicotine dependence, unspecified, uncomplicated; F10.10 Alcohol abuse, uncomplicated; F12.10 Cannabis abuse, uncomplicated

== ENCOUNTER → 2017-12-29 | Outpatient (CLI) | payer BC, OTHER ==
[~2017-12-29] MED LIST changes: +BUPR100T8 PO; -DIVA500T5 PO; -PERP4TAB37 PO; +TAMS0.4C38 PO
[2017-12-29 13:26] LABS: HEMOGLOBIN A1C 5.5 % (4.5-5.6)
== END | disposition home or self-care (01) ==
LOC: C.LABPVFM 10:51
PROVIDERS: ATTEND Nurse Practitioner
DX: R73.01 Impaired fasting glucose (principal)

== ENCOUNTER 2018-01-20 15:53 | Emergency (ER) | payer BC, OTHER ==
[~2018-01-20] VITALS: Ht 172.7 cm; Wt 161.5 kg
[2018-01-20 15:58] VITALS: TEMP 37.2; Ht 172.7 cm; Wt 161.5 kg
[2018-01-20] MEDS ORDERED: ACETAMINOPHEN 325 MG TAB PO STA (16:39)
[2018-01-20] MEDS ORDERED: IBUPROFEN 600 MG TAB PO STA (16:39)
[2018-01-20] MEDS ORDERED: IBUPROFEN 800 MG TAB ONE (16:44)
[2018-01-20] MEDS ORDERED: [UNRECOGNIZED DRUG - REMARK] TOP (16:56)
--- NOTE | 2018-01-20 17:24 | DIAGNOSTIC IMAGING REPORT ---
LUMBAR SPINE 3 VIEWS CLINICAL HISTORY: Low back pain. FINDINGS: AP, lateral, and coned-down views of the lumbar spine are obtained. No prior studies are available for comparison at the time of dictation. The skeletal structures are well mineralized. There is no radiographic evidence of fracture or malalignment. Vertebral body height and alignment are maintained. The transverse and spinous processes are intact. The intervertebral disc spaces are well-maintained. The visualized bony pelvis appears intact. There is a nonobstructed abdominal bowel gas pattern. IMPRESSION: Unremarkable radiographic evaluation of the lumbosacral spine. Electronically signed by: Shaun Smallwood M.D. 01/20/2018 5:23 PM Dictated Date/Time: 01/20/2018 5:22 PM
--- NOTE | 2018-01-20 18:07 | EMERGENCY ROOM VISIT NOTE ---
History Report prepared by Phylicia: Gurinder Serna Under the Supervision of: Dr. Leo Coello M.D. First contact with patient: 16:22 Chief Complaint: BACK PAIN Stated Complaint: ACHES, DIZZY, MUSCLE/BACK PAIN, CHILLS History of Present Illness The patient is a 22 year old white male with a past medical history of alcohol abuse, bipolar disorder, cannabis abuse, depression, drug abuse, epididymal cyst , schizoaffective disorder, suicidal ideation and tonsillectomy who presents to the Emergency Room with complaints of constant back pain for the past 3 hours. He describes the pain as a "dull" sensation. He was sitting in the car when the symptoms onset, and he denies any recent heavy lifting, falls, or strains. The patient does note feeling chills/fevers lately as well. He has been constipated for the past couple of days, which he notes could be due to the medications he takes. The patient significant other at bedside notes that he has chronic hemorrhoids, which are worsening. She states that she applies prescription cream to the area, since the patient cannot reach. Source of History: patient Onset: 3 hours ago Position: back Quality: dull Timing: constant Associated Symptoms: + fevers, + chills Review of Systems See HPI for pertinent positives and negatives. A total of ten systems were reviewed and were otherwise negative. Past Medical & Surgical Medical Problems: (1) Agitation (2) Alcohol Abuse-Unspec (3) Bipolar disorder (4) Cannabis Abuse-Unspec (5) Depression (6) Drug abuse (7) Encounter for medication refill (8) Epididymal cyst (9) Injury of right great toe (10) K76.0 (11) Left ankle sprain (12) Left testicular pain (13) Medication dose changed (14) R07.9 (15) Schizoaffective disorder, unspecified condition (16) Suicidal ideation (17) Suicidal Ideation (18) Testicular pain (19) Testicular/scrotal pain (20) Tobacco Use Disorder (21) Wrist pain, right Surgical Problems: (1) History of tonsillectomy Family History Diabetes mellitus Heart disease Hypertension Social History Smoking Status: Current Every Day Smoker Alcohol Use: heavy Drug Use: marijuana, other Marital Status: in relationship Housing Status: lives with significant other Occupation Status: unemployed Current/Historical Medications Scheduled Divalproex Sodium (Depakote Er), 1,500 MG PO HS Divalproex Sodium (Depakote Er), 1,000 MG PO AMPM Perphenazine (Trilafon), 12 MG PO AMHS Prazosin Hcl (Minipress), 1 MG PO HS Propranolol (Inderal), 10 MG PO TID Tamsulosin Hcl (Flomax), 0.4 MG PO HS Scheduled PRN [Steroid Hemorrhoid], 1 APPLN TOP TID PRN for Hemorrhoids Allergies Coded Allergies: No Known Allergies (Unverified , 01/20/18) Physical Exam Vital Signs Date Time Temp Pulse Resp B/P (MAP) Pulse Ox O2 Delivery O2 Flow Rate FiO2 01/20/18 19:10 88 18 123/72 95 01/20/18 17:45 92 18 110/46 94 Room Air 01/20/18 15:58 37.2 103 22 169/89 96 Room Air Physical Exam GENERAL: Awake, alert, well-appearing, NAD HENT: Normocephalic, atraumatic. EYES: Normal conjunctiva. Sclera non-icteric. PERRL. No anisocoria. NECK: Supple. No nuchal rigidity. FROM. RESPIRATORY: CTAB, no rhonchi, wheezing, crackles CARDIAC: RRR, no MRG ABDOMEN: Soft, NTND, BS+ MSK: No chest wall TTP, no LE edema. There is lower midline and right sided paraspinal TTP. Negative straight leg raise bilaterally. NEURO: GCS 15, CN 2-12 intact, moves all 4s on command. No saddle anesthesia. SKIN: No rash or jaundice noted. RECTAL: There is redness around the anus, no fluctuance, no drainage. Medical Decision & Procedures ER Provider Diagnostic Interpretation: Radiology results as stated below per my review and radiologist interpretation: LUMBAR SPINE 3 VIEWS CLINICAL HISTORY: Low back pain. FINDINGS: AP, lateral, and coned-down views of the lumbar spine are obtained. No prior studies are available for comparison at the time of dictation. The skeletal structures are well mineralized. There is no radiographic evidence of fracture or malalignment. Vertebral body height and alignment are maintained. The transverse and spinous processes are intact. The intervertebral disc spaces are well-maintained. The visualized bony pelvis appears intact. There is a nonobstructed abdominal bowel gas pattern. IMPRESSION: Unremarkable radiographic evaluation of the lumbosacral spine. Electronically signed by: Shaun Smallwood M.D. 01/20/2018 5:23 PM Dictated Date/Time: 01/20/2018 5:22 PM Laboratory Results Test 01/20/18 16:30 Urine Color YELLOW Urine Appearance CLEAR (CLEAR) Urine pH 5.0 (4.5-7.5) Urine Specific [place] 1.030 (1.000-1.030) Urine Protein NEG (NEG) Urine Glucose (UA) NEG (NEG) Urine Ketones TRACE (NEG) Urine Occult Blood NEG (NEG) Urine Nitrite NEG (NEG) Urine Bilirubin NEG (NEG) Urine Urobilinogen NEG (NEG) Urine Leukocyte Esterase NEG (NEG) Urine WBC (Auto) 1-5 /hpf (0-5) Urine RBC (Auto) 0-4 /hpf (0-4) Urine Hyaline Casts (Auto) 1-5 /lpf (0-5) Urine Epithelial Cells (Auto) 0-5 /lpf (0-5) Urine Bacteria (Auto) NEG (NEG) Laboratory results reviewed by me Medications Administered Medications (Trade) Dose Ordered Sig/Hermelinda Route Start Time Stop Time Status Last Admin Dose Admin Acetaminophen (Tylenol Tab) 650 mg NOW STAT PO 01/20/18 16:39 01/20/18 16:40 DC 01/20/18 16:46 650 MG Ibuprofen (Motrin Tab) 800 mg STK-MED ONCE .ROUTE 01/20/18 16:44 01/20/18 16:45 DC 01/20/18 16:47 800 MG ED Course 1627: The patient was evaluated in room B9. A complete history and physical exam was performed. 1843: I reevaluated the patient. Discussed results and discharge instructions: He verbalized understanding and agreement. The patient is ready for discharge. Medical Decision The patient is a 22 year old white male with a past medical history of alcohol abuse, bipolar disorder, cannabis abuse, depression, drug abuse, epididymal cyst , schizoaffective disorder, suicidal ideation and tonsillectomy who presents to the Emergency Room with complaints of constant back pain for the past 3 hours. Nursing notes reviewed. Ancillary studies and prior records reviewed. Differential diagnosis: Etiologies such as musculoskeletal, disc herniation, fracture, aortic disease, metastatic disease, cord compression, discitis, infection, renal colic, gastrointestinal, acute exacerbation of chronic back pain, sciatica, cauda equina, as well as others were entertained. Patient was seen and evaluated the bedside. Patient reportedly had some back pain that began while sitting in the car possibly 3 hours ago. Constant sharp nonradiating. Patient is also been treated for hemorrhoids. The patient was examined and the patient did not have any saddle anesthesia no history of bowel or bladder incontinence or trauma. No recent falls no unexplained weight loss, IV drug abuse, fevers, chills. The patient did have some redness surrounding his anus but there is no fluctuance or discharge. I do not believe that he requires imaging of this area. Patient did have lumbar series as well as urinalysis. Patient was also given medications for pain control Patient's lumbar series is negative. Urinalysis negative for blood or infection. The patient again had a normal nonfocal bilateral lower extremity exam without saddle anesthesia. He also did have some redness to the anus but again without any fluctuance or drainage concerning for deep space infection. They were already applying Anusol. I did recommend a sitz bath for his history of hemorrhoids. Upon re-assessment the patient was feeling improved. I did discuss the results with the patient patient was deemed suitable for outpatient follow-up and treatment at this time. Patient ambulated without difficulty. Patient was given strict follow-up, discharge, and return precautions. All questions were answered. Patient was deemed suitable for outpatient follow-up at this time. Patient agreed with the plan of care and was safely discharged home. Medication Reconcilliation Current Medication List: was personally reviewed by me Blood Pressure Screening Patient's blood pressure: Elevated blood pressure Blood pressure disposition: Elevated BP felt to be situational Impression Primary Impression: Back pain Scribe Attestation The scribe's documentation has been prepared under my direction and personally reviewed by me in its entirety. I confirm that the note above accurately reflects all work, treatment, procedures, and medical decision making performed by me. Departure Information Dispostion Home / Self-Care Referrals Glenda Cuenca (PCP) Patient Instructions Back Pain - [facility], Back Pain Relieve, Low Back Pain Self Care, [facility] Additional Instructions Please return to the emergency department if you have worsening or recurrent symptoms not amenable to at-home treatment. Please call for a follow-up appointment with her primary care physician. Please take your medications as prescribed. If you have other concerns and/or complaints please feel free to also call your primary care physician's office or return the ED for further evaluation, management, and treatment. You may take 800 mg Ibuprofen every 6 hours as needed for pain/fever with food unless told by your physician not to take NSAIDs. You may take tylenol 1000 mg every 6 hours as needed for pain/fever unless told by your physician to not take it or have liver problems. You may take motrin and tylenol separately or at the same time. Take your medications as prescribed. You have been examined and treated today on an emergency basis only. This is not a substitute for, or an effort to provide, complete comprehensive medical care. It is impossible to recognize and treat all injuries or illnesses in a single emergency department visit. It is therefore important that you follow up closely with [facility], your PCP, and/or your specialist(s). Call as soon as possible for an appointment. Thank you for your time and consideration. I look forward to speaking with you again soon. Please don't hesitate to call us if you have any questions. Problem Qualifiers Primary Impression: Back pain Back pain location: low back pain Chronicity: chronic Back pain laterality : midline Sciatica presence: without sciatica Qualified Codes: M54.5 - Low back pain; G89.29 - Other chronic pain
[2018-01-20 19:10] VITALS: BP 123/72; PULSE 88; O2SAT 95
== END 2018-01-20 19:10 | disposition home or self-care (01) ==
LOC: C.EDB 15:55
DX: M54.5 Low back pain (principal); G89.29 Other chronic pain; F10.10 Alcohol abuse, uncomplicated; F12.10 Cannabis abuse, uncomplicated; F25.9 Schizoaffective disorder, unspecified; F31.9 Bipolar disorder, unspecified; F32.9 Major depressive disorder, single episode, unspecified; F17.210 Nicotine dependence, cigarettes, uncomplicated; Z79.899 Other long term (current) drug therapy

== ENCOUNTER 2020-05-29 21:26 | Inpatient (IN) ==
[2020-05-29] MEDS ORDERED: haloperidoL 1 MG TAB PO ONE (21:46)
[2020-05-29] MEDS ORDERED: LORazepam 1 MG TAB PO STA (21:46)
[2020-05-29 22:05] LABS: Basophils # (auto) 0.02 K/uL (0-0.2); Basophils % (auto) 0.2 %; Eosinophils % (auto) 2.1 %; Hematocrit (blood only) 44.7 % (42-52); Hemoglobin 15.5 g/dL (14.0-18.0); Immature Granulocytes # (auto) 0.02 K/uL (0.00-0.02); Immature Granulocytes % (auto) 0.2 %; Lymphocytes # (auto) 2.18 K/uL (1.2-3.4); Lymphocytes % (auto) 23.1 %; Mean Corpuscular Hemoglobin 29.4 pg (25-34); Mean Corpuscular Hgb Conc 34.7 g/dL (32-36); Mean Corpuscular Volume 84.8 fL (80-100); Mean Platelet Volume 9.1 fL (7.4-10.4); Monocytes # (auto) 0.54 K/uL (0.11-0.59); Monocytes % (auto) 5.7 %; Neutrophils # (auto) 6.46 K/uL (1.4-6.5); Neutrophils % (auto) 68.7 %; Platelet Count 288 K/uL (130-400); RDW Coefficient of Variation 13.7 % (11.5-14.5); RDW Standard Deviation 42.1 fL (36.4-46.3); Red Blood Count 5.27 M/uL (4.7-6.1); White Blood Count 9.42 K/uL (4.8-10.8)
--- NOTE | 2020-05-29 22:05 | Emergency Department Note ---
Impression & Plan Bipolar affective disorder, depressed, severe, with psychotic behavior, Noncompliance with medication regimen ED Provider Note NAME: GAGE ORTEGA III AGE: 25 SEX: M : 1995 ARRIVES VIA: [employer] INFORMANT: Patient, the patient's significant other ED PROVIDER(S): Dani Partida DO CHIEF COMPLAINT: Mental health problems HPI: The patient is a 25-year-old male who presented to the emergency department for mental health evaluation. The patient arrived with his significant other who is very concerned because the patient's behavior had become much worse over the last few weeks. The patient is a history of bipolar disorder. He has had a history of similar episodes in the past. He was admitted to a mental health facility in the past but recently he stopped taking all of his medications for his bipolar disorder because he felt that he was gaining weight. The patient has very severe paranoia. He is acting out sexually as well as aggressively. His significant other is very concerned that he is not safe at home. History was somewhat limited because the patient would not be compliant with the exam or the history taking. 302 petition was filled out by the patient's significant other. ROS: See above HPI for pertinent positives & negatives. A total of 10 systems reviewed and were otherwise negative. PAST MEDICAL HISTORY: See Below PAST SURGICAL HISTORY: See Below FAMILY HISTORY: See Below SOCIAL HISTORY: See Below HOME MEDICATIONS: See Below ALLERGIES: See Below VITALS: See Below PHYSICAL EXAMINATION: GENERAL: The patient is awake and alert. He is very anxious appearing and guarded. EYES: The conjunctivae are clear. The pupils are round and reactive. EARS, NOSE, MOUTH AND THROAT: The nose is without any evidence of any deformity. Mucous membranes are moist. Tongue is midline. NECK: The neck is nontender and supple. RESPIRATORY: Normal respiratory effort is noted there is no evidence of wheezing rhonchi or rales CARDIOVASCULAR: Regular rate and rhythm noted there no murmurs rubs or gallops normal S1 normal S2. GASTROINTESTINAL: The abdomen is soft. Abdomen is nontender. MUSCULOSKELETAL/EXTREMITIES: There is no evidence of gross deformity full range of motion is noted in the hips and shoulders. SKIN: There is no obvious evidence of any rash. There are no petechiae, pallor or cyanosis noted. NEUROLOGIC: Patient is awake alert and oriented x3 strength is symmetric patellar reflexes are 2+ bilaterally PSYCH: The patient is very guarded. He appears somewhat anxious. He is constantly talking about "terminators" and feels that there are robots that are chasing him. The patient makes very poor eye contact. MEDICAL DECISION MAKING: The patient is a 25-year-old male who presented to the emergency department for mental health evaluation. The patient presented with his significant other and there was very significant concern that the patient was not able to care for himself. The patient is not compliant with his medications. Overall he has very poor insight into his overall condition. Initially the patient was agreeable to take some medications to help him calm down and sleep but he started to become very combative and was sedated and restrained for the patient's safety as well as the staff safety. He reacted very well to these medications and was resting comfortably on my reevaluation. The patient will need to be evaluated when he is more compliant with the evaluation. Patient was signed out to Dr. Koroma at change of shift. Please see her note for continuation of care and further disposition. The patient did punch a wall while he was in his room in mental health. X-ray of the hand was obtained. Triage Nursing notes reviewed. Prior medical records reviewed Vital Signs: reviewed and remarkable for hypertension Differential diagnosis: Mood disorder, infection, hypoglycemia, electrolyte abnormalities, cardiac sources, intracerebral event, toxicologic, trauma, neurologic, as well as other pathologies. ER treatment provided: See below Diagnostics interpreted by me: ECG: none Laboratory studies: As stated above and show below. Imaging studies: See below Consultation(s): none ED COURSE: Procedures: none PDMP:reviewed and no issues Critical Care: I have personally spent greater than 55 minutes of critical care time in the direct management of this patient. This includes bedside care, interpretation of diagnostic studies, and testing, discussion with consultants, patient, and family members, and other required patient management activities. This 55 minutes is in excess of all separately billable procedures. Past Med/Surg History Medical History Acid reflux OCCASSIONAL/PT REPORTS FROM CHEWING TOBACCO Bipolar I disorder Drug abuse Hypertension Recurrent epistaxis Schizophrenia Surgical History History of inguinal hernia repair History of tonsillectomy Family History Mother Alcohol abuse Anxiety Asthma Depression Grandfather (Maternal) Colorectal cancer Hypertension Myocardial infarction Father Depression Grandfather (Paternal) Diabetes Myocardial infarction Sister Substance abuse Brother Substance abuse Grandmother (Maternal) Lung disease Denies family history of Ovarian cancer Prostate cancer Breast cancer Social History Smoking Status: Former smoker Tobacco Type: Cigarettes Cigarettes Per Day: 10 CIGS PER DAY/ ADVISED NPO; Hx Alcohol Use: No Hx Substance Use: No Preferred Language: Romansh Communication Ability: Effective Visual Impairment: No Limitations Hearing Ability: Normal Nitro Man Required: No Beliefs That Will Affect Care: None Current Living Situation: Significant Other Current Living Situation Comment: Girlfriend current occupational status: disabled Feels Safe at Home: Yes Allergies Allergies Allergy/AdvReac Type Severity Reaction Status Date / Time No Known Drug Allergies Allergy Verified 04/26/20 13:48 Home Meds Home Medications Medication Instructions Recorded Confirmed No Known Home Medications 05/29/20 05/29/20 Results & Data (ED) Vital Signs Vital Signs - 24 hr 05/29/20 21:37 Temperature 36.9 C Temperature Source Oral Pulse Rate 86 Respiratory Rate 18 Blood Pressure 161/100 H Blood Pressure Mean 120 Pulse Oximetry 96 Sepsis Recent Fever Within 48 Hours No Sepsis New/Unexplained Change in Mental Status No Sepsis Action Taken by Nursing No Action Required Home Medications Current Medication List: was personally reviewed by me Laboratory Data Attestation: I reviewed the patient's lab results. Result diagrams: 05/29/20 21:41 05/29/20 21:41 Lab Results 05/29/20 05/29/20 05/29/20 Range/Units 21:41 21:41 21:41 WBC 9.42 (4.8-10.8) K/uL RBC 5.27 (4.7-6.1) M/uL Hgb 15.5 (14.0-18.0) g/dL Hct 44.7 (42-52) % MCV 84.8 (80-100) fL MCH 29.4 (25-34) pg MCHC 34.7 (32-36) g/dL RDW Std Deviation 42.1 (36.4-46.3) fL RDW Coeff of Mita 13.7 (11.5-14.5) % Plt Count 288 (130-400) K/uL MPV 9.1 (7.4-10.4) fL Immature Gran % (Auto) 0.2 % Neut % (Auto) 68.7 % Lymph % (Auto) 23.1 % [place] % (Auto) 5.7 % Eos % (Auto) 2.1 % Baso % (Auto) 0.2 % Neut # (Auto) 6.46 (1.4-6.5) K/uL Lymph # (Auto) 2.18 (1.2-3.4) K/uL [place] # (Auto) 0.54 (0.11-0.59) K/uL Eos # (Auto) 0.20 (0-0.5) K/uL Baso # (Auto) 0.02 (0-0.2) K/uL Immature Gran # (Auto) 0.02 (0.00-0.02) K/uL Sodium 142 (136-145) mmol/L Potassium 3.6 (3.5-5.1) mmol/L Chloride 110 H (98-107) mmol/L Carbon Dioxide 22 (21-32) mmol/L Anion Gap 10.0 (3-11) BUN 10 (7-18) mg/dl Creatinine 1.00 (0.6-1.4) mg/dl Est Cr Clr Drug Dosing 146.0 ml/min Est GFR ( Amer) 119.9 Est GFR (Non-Af Amer) 103.4 BUN/Creatinine Ratio 9.8 L (10-20) Glucose 107 H (70-99) mg/dl Calcium 9.7 (8.5-10.1) mg/dl Total Bilirubin 0.5 (0.2-1) mg/dl AST 16 (15-37) U/L ALT 25 (12-78) U/L Alkaline Phosphatase 74 (45-117) U/L Total Protein 7.9 (6.4-8.2) gm/dl Albumin 4.1 (3.4-5.0) gm/dl Globulin 3.8 (2.5-4.0) gm/dl Albumin/Globulin Ratio 1.1 (0.9-2) TSH 0.641 (0.300-4.500) uIu/ml Salicylates < 1.7 L (2.8-20) mg/dl Acetaminophen < 2 L (10-30) ug/ml Ethyl Alcohol mg/dL (0-3) mg/dl 05/29/20 Range/Units 21:41 WBC (4.8-10.8) K/uL RBC (4.7-6.1) M/uL Hgb (14.0-18.0) g/dL Hct (42-52) % MCV (80-100) fL MCH (25-34) pg MCHC (32-36) g/dL RDW Std Deviation (36.4-46.3) fL RDW Coeff of Mita (11.5-14.5) % Plt Count (130-400) K/uL MPV (7.4-10.4) fL Immature Gran % (Auto) % Neut % (Auto) % Lymph % (Auto) % [place] % (Auto) % Eos % (Auto) % Baso % (Auto) % Neut # (Auto) (1.4-6.5) K/uL Lymph # (Auto) (1.2-3.4) K/uL [place] # (Auto) (0.11-0.59) K/uL Eos # (Auto) (0-0.5) K/uL Baso # (Auto) (0-0.2) K/uL Immature Gran # (Auto) (0.00-0.02) K/uL Sodium (136-145) mmol/L Potassium (3.5-5.1) mmol/L Chloride (98-107) mmol/L Carbon Dioxide (21-32) mmol/L Anion Gap (3-11) BUN (7-18) mg/dl Creatinine (0.6-1.4) mg/dl Est Cr Clr Drug Dosing ml/min Est GFR ( Amer) Est GFR (Non-Af Amer) BUN/Creatinine Ratio (10-20) Glucose (70-99) mg/dl Calcium (8.5-10.1) mg/dl Total Bilirubin (0.2-1) mg/dl AST (15-37) U/L ALT (12-78) U/L Alkaline Phosphatase (45-117) U/L Total Protein (6.4-8.2) gm/dl Albumin (3.4-5.0) gm/dl Globulin (2.5-4.0) gm/dl Albumin/Globulin Ratio (0.9-2) TSH (0.300-4.500) uIu/ml Salicylates (2.8-20) mg/dl Acetaminophen (10-30) ug/ml Ethyl Alcohol mg/dL < 3.0 (0-3) mg/dl Administered Medications Discontinued Medications Haloperidol (Haloperidol 1 Mg Tab) 5 mg PO ONE ONE Stop: 05/29/20 21:47 Last Admin: 05/29/20 22:06 Dose: 5 mg Documented by: [id number] Haloperidol Lactate (Haloperidol Lactate 5 Mg/Ml 1 Ml Vial) 5 mg IM NOW STA Stop: 05/29/20 22:26 Last Admin: 05/29/20 22:35 Dose: 5 mg Documented by: [id number] Lorazepam (Lorazepam 1 Mg Tab) 1 mg PO NOW STA Stop: 05/29/20 21:47 Last Admin: 05/29/20 22:06 Dose: 1 mg Documented by: [id number] Lorazepam (Lorazepam 2 Mg/Ml Vial (Im Use)) 1 mg IM NOW STA Stop: 05/29/20 22:26 Last Admin: 05/29/20 22:35 Dose: 1 mg Documented by: [id number] Imaging Data Attestation: I personally reviewed and interpreted this imaging study as follows: My Impression: X-ray left hand was obtained in the emergency department. My interpretation is no acute fracture no acute dislocation. Prescription Drug Monitoring [place] Drug Monitoring Program reviewed and no issues identified Blood Pressure Blood Pressure Findings: Elevated blood pressure Discharge Plan Visit Data Chief Complaint: Mental Health Evaluation Stated Complaint: [facility] ED Provider: Dani Partida Discharge Problem: Bipolar affective disorder, depressed, severe, with psychotic behavior, Noncomp liance with medication regimen Forms Stand Alone Forms: My [facility], Suicide Prevention Resources Prescriptions Prescriptions: No Action No Known Home Medications RF: 0 Referrals Referrals: Georgina Hobbs MD [Primary Care Provider] -
[2020-05-29 22:16] LABS: Albumin Level 4.1 gm/dl (3.4-5.0); BUN Creatinine Ratio 9.8 (10-20); Calcium 9.7 mg/dl (8.5-10.1); Est GFR (African American) 119.9; Est GFR (Non-African American) 103.4; Potassium 3.6 mmol/L (3.5-5.1)
[2020-05-29] MEDS ORDERED: HALOPERIDOL LACTATE 5 MG/ML 1 ML VIAL IM STA (22:25)
[2020-05-29] MEDS ORDERED: LORazepam 2 MG/ML VIAL (IM USE) IM STA (22:25)
[2020-05-29 22:26] LABS: Albumin Globulin Ratio 1.1 (0.9-2); Bilirubin,Total 0.5 mg/dl (0.2-1); Globulin 3.8 gm/dl (2.5-4.0); Thyroid Stimulating Hormone 0.641 uIu/ml (0.300-4.500); Total Protein 7.9 gm/dl (6.4-8.2)
[2020-05-29 22:41] LABS: Acetaminophen < 2 ug/ml (10-30); Salicylate < 1.7 mg/dl (2.8-20)
--- NOTE | 2020-05-30 00:42 | Emergency Department Note ---
ED Visit Note This case was signed out to me at change of shift They will attempt to get a urine specimen from this patient so that he can be medically cleared and a bed search can begin 0135: The patient remains acutely psychotic. He is unable to sign himself in voluntarily as he cannot understand the consequences. 0330: The 302 was signed and a bed search is underway 0545: The bed search has been suspended as most places have declined excepting this patient. 0630: The case will be signed out to Dr. Bruno at change of shift. The patient is currently resting comfortably. .
[2020-05-30 01:37] LABS: Appearance Urine Clear (Clear); Bacteria Urine Automated Negative (Negative); Bilirubin Urine Negative (Negative); Blood Urine Negative (Negative); Color Urine Dark Yellow; Glucose Urine UA Negative (Negative); Ketones Urine Trace (Negative); Leukocyte Esterase Urine Negative (Negative); Nitrite Urine Negative (Negative); Protein Urine 2+ (Negative); RBC Urine Automated 0-4 /hpf (0-4); Specific Gravity Urine 1.021 (1.000-1.030); Urobilinogen Urine Negative (Negative); pH Urine 5.5 (4.5-7.5)
[2020-05-30 02:02] LABS: Amphetamines+Metham, Urine Neg (Neg); Barbiturates, Urine Neg (Neg); Benzodiazepine, Urine Neg (Neg); Cocaine, Urine Neg (Neg); MDMA (Ecstacy), Urine Neg (Neg); Methadone, Urine Neg (Neg); Opiate, Urine Neg (Neg); Phencyclidine, Urine Neg (Neg)
--- NOTE | 2020-05-30 07:29 | Emergency Department Note ---
ED Visit Note I assumed care at the change of shift. The patient had been medically cleared to be seen by psychiatry. A 302 petition had been filled out and signed. The patient was awaiting bed placement. The patient had required some sedation during his ED stay. The patient had not been taking his medications as an outpatient so there were no meds due to be administered. Psychiatry case management did talk with the psychiatry services at this hospital. They recommended Haldol 5 mg twice daily, first dose now. They also recommended 5 mg of Haldol as needed for agitation every [address] the above orders as recommended. The case is being assumed by the oncoming ED physician. Bed placement is still in process. Patient has been cooperative during his time under my care. .
--- NOTE | 2020-05-30 08:12 | XRay Report ---
XR hand LT min 3V routine HISTORY: 25 years-old Male punched wall acute left hand pain status post trauma COMPARISON: None TECHNIQUE: 3 views of the left hand FINDINGS: Mild diffuse soft tissue prominence of the distal forearm and dorsal hand. No acute fracture, disloca tion, significant osteoarthritis or opaque foreign body. IMPRESSION: No acute fracture. ACT 112: Negative or not required by law. The above report was generated using voice recognition software. It may contain grammatical, syntax o r spelling errors. Electronically signed by: Jer Melendez M.D. 05/30/2020 8:10 AM
[2020-05-30] MEDS ORDERED: haloperidoL 5 MG TAB PO STA (12:27)
[2020-05-30] MEDS ORDERED: haloperidoL 1 MG TAB PO PRN (12:27)
--- NOTE | 2020-05-30 12:44 | Communication Note ---
Date of Service: May 30, 2020 Patient's case was reviewed this morning during report with psychiatric nurse liaison and supervising psychiatrist, Dr. Fraga. Received request from ED psychiatric director of casework department on behalf of ED staff to review chart and offer medication recommendations, as patient is reportedly willing for PO medications and bed search for an inpatient psychiatric facility has been unsuccessful thus far. Documentation and medication administration history reviewed. Pt reportedly tolerated haloperidol dosing last evening and appeared to benefit from receiving the medication in regard to improved behavior and thought process. Pt received a total of 10mg of Haldol (5mg IM and 5mg PO), in addition to a two doses of 1mg lorazepam to target agitated behavior that was displayed when patient initially presented to the ED. Girlfriend shared with ED staff that she is only aware of a previous trial of Depakote - which led to significant weight gain and therefore noncompliance. More extensive review of patient's medical records shows that he has had numerous psychotropic medication trials since ~2010. These include: Abilify, Topamax, Kreamer, Melatonin, Kl onopin, Prazosin, Trazodone, Trilafon, Trileptal, and doses of Zyprexa which were given to improve behavioral control during a previous ED presentation. Earlier reports suggest a previous diagnosis of bipolar disorder, though it appears this has evolved to a diagnosis of schizophrenia after patient admitted to auditory hallucinations. As of an ED presentation in 03/2019, patient was receiving outpatient psychiatric medication management from Dr. Galaviz. In regard to acute recommendations, would suggest continuation of Haldol via scheduled dosing given positive response to medication earlier in the ED. Would advise initiating at 5mg BID with prn dosing of 5mg available q6h prn. Titration of dosage can occur as necessary to target hallucinations/psychosis and of course any safety concerns related to aggressive behavior. Notes currently suggest patient's behavior has improved from last evening, as no mention of agitation or combative behavior today. The above recommendations are for acute stabilization of present concerns until a more extensive treatment plan can be developed at an accepting psychiatric facility. Please reach out to our service if there are any additional needs as the bed search for inpatient psychiatric placement continues.
[2020-05-30] MEDS ORDERED: HALOPERIDOL LACTATE 5 MG/ML 1 ML VIAL IM PRN (14:57)
--- NOTE | 2020-05-30 14:58 | Emergency Department Note ---
ED Visit Note I did assume care from Dr. Bruno. The patient currently has a 302 signed due to concern for behavioral issues. The patient was medically cleared and still is pending placement. Psychiatry here has recommended Haldol twice daily p.o. 5 mg. This has been ordered. Patient is still pending placement. Patient was signed out to the evening physician Dr. Martinez, pending placement. .
[2020-05-30] MEDS: haloperidoL 5 MG TAB PO SCH (21:06)
--- NOTE | 2020-05-30 22:40 | Emergency Department Note ---
ED Visit Note Received patient in signout. History and physical verified by me. Patient is awaiting 302 placement. At the time of signout patient is sleeping. Signed out to DR Leone at change of shift. .
[2020-05-31] MEDS: haloperidoL 5 MG TAB PO SCH ×2 (11:18→20:40)
--- NOTE | 2020-05-31 11:51 | Communication Note ---
Date of Service: May 31, 2020 Received consultation request from Dr. Leone, ED physician, regarding patient extended ED stay and psychiatric bed search that has been unsuccessful thus far. Pt is on a 302 involuntarily psychiatric commitment. Direct conversation was had via phone regarding patient's case. Reviewed that patient has been in appropriate behavioral control throughout the day yesterday and into this morning. Pt has been requesting discharge, and our service was asked to provide recommendations regarding this request. Although patient has reportedly been in decent behavioral control, concern for safety planning continues to be that patient does not have current outpatient psychiatric providers with whom to follow-up after discharge. It would also be imperative to discuss the potential for a safety plan with girlfriend prior to decision being rendered, as she was the individual initially expressing concerns. Ideally, patient would be admitted to an inpatient psychiatric facility that could develop an appropriate treatment plan, provider outpatient referrals, and offer medication recommendations and adjustments - it seems patient would benefit from an MIKE given reports of chronic medication noncompliance. Recommend continued bed search for an appropriate facility, while attempting to obtain additional collateral from patient's girlfriend. Recommendations were provided by our service yesterday to initiate scheduled dosing of haloperidol 5mg BID until accepted but a psychiatric facility to discuss other appropriate medication regimens. Pt has been compliant with this regimen thus far. We will continue to follow case closely, and if indicated, complete an assessment of the patient for safety planning or medication adjustment - however, current recommendation remains for inpatient psychiatric hospitalization. Please reach out to our service with any additional questions or updates.
[2020-05-31] MEDS ORDERED: NICOTINE POLACRILEX 2 MG GUM MT PRN (13:27)
--- NOTE | 2020-05-31 14:49 | Emergency Department Note ---
ED Visit Note No issues during this shift. Awaiting bed placement. .
--- NOTE | 2020-05-31 14:50 | Emergency Department Note ---
ED Visit Note Awaiting placement. Signed out to Dr Garcia. .
--- NOTE | 2020-05-31 14:53 | Emergency Department Note ---
ED Visit Note 1445: 25 year old male with history of schizophrenia presented with paranoia. 302 signed. Awaiting placement.1452: Sign out from Dr. Fisher 1625: Patient admitted to inpatient psychiatry. .
[2020-05-31] MEDS ORDERED: BISMUTH SUBSALICYLATE PER ML OMNICELL CHARGE PO PRN (16:23)
[2020-05-31] MEDS ORDERED: SODIUM CHLORIDE 0.65% NA SOLN 45 ML (OCEAN) PRN (16:23)
[2020-05-31] MEDS ORDERED: MAGNESIUM HYDROXIDE SUSP 30 ML UDC PO PRN (16:23)
[2020-05-31] MEDS ORDERED: ALUMINUM/MAGNESIUM SUSP 30 ML UDC PO PRN (16:23)
[2020-05-31] MEDS ORDERED: ACETAMINOPHEN 325 MG TAB PO PRN (16:23)
[2020-05-31] MEDS ORDERED: LORazepam 1 MG TAB PO PRN (16:26)
[2020-05-31] MEDS ORDERED: haloperidoL 5 MG TAB PO PRN (16:26)
[2020-05-31] MEDS ORDERED: HALOPERIDOL LACTATE 5 MG/ML 1 ML VIAL IM PRN (16:27)
[2020-05-31] MEDS ORDERED: LORazepam 2 MG/ML VIAL (IM USE) IM PRN (16:28)
[2020-05-31] MEDS ORDERED: BENZTROPINE MESYLATE 1 MG/ML 2 ML AMP IM PRN (17:34)
--- NOTE | 2020-05-31 17:53 | History & Physical ---
Date of Service May 31, 2020 Impression / Recommendations Impression This 25-year-old man reports a fairly extensive history of multiple psychiatric hospitalizationsalthough he says that he would rather not talk about to the hospitalizations. When asked to say how many, he said "a lot." He does acknowledge that he has been to the [facility], and referenced [facility], although it was not clear if he meant that he had been admitted to hospitals there. Our understanding is that he has been given various diagnoses over the years. These have included schizophrenia as well as bipolar disorder. Apparently the most recent diagnosis is bipolar disorder, and he had originally been diagnosed with schizophrenia. Today, on assessment, his presentation seems more consistent with schizophrenia. His thinking is somewhat disorganized and his speech is, at times, idiosyncratic. He seems to have vague, non- systematized delusions and heavily strongly suggest to us that he has a history of auditory hallucinations. The patient's thought processes include perseverati on and echolalia, and were not currently observing pressured speech or flight of ideas. He indicates that he is not feeling particularly depressed, and his affect is mildly hebophrenic, but not elated or expansive or overly irritable. He seems to be responding favorably to Haldol 5 mg twice a day. Because the patient has been able to tolerate Haldol and seems to have no adverse effects, we will begin Haldol decanoate 50 mg IM this evening and 50 mg IM on 06/03/20 --either here or in an outpatient basis as indicated and tolerated. We will also continue oral Haldol 5 mg twice a day until 06/03/2020. The plan will be to return the patient to the community for continued care and treatment on an outpatient basis soon as possible (1) Schizoaffective disorder, bipolar type: 05/31 -The patient reportedly had initially carried a diagnosis of schizophrenia and was later given a diagnosis of bipolar disorder. Based on the presenting confluence of symptoms we believe that the most appropriate diagnosis is schizoaffective disorder, bipolar type. -The patient has been admitted to the [facility] behavioral health unit and has been referred for individual, group, recreational, and, as appropriate, family therapy. We are also going to be continuing Haldol 5 mg twice daily started in the emergency department, and, at the same time, we will be adding Haldol decanoate 50 mg today and 50 mg on 06/03/2020. -The patient will be closely observed during the hospital stay. Present on Admission?: Yes (2) Persecution, delusion: 05/31 -There is been reported that the patient has a long history of delusions of persecution and that, prior to admission, he was having difficulty trusting people at home, and, most recently, in the emergency department. However, his level of trust seems to have improved significantly. He continues to endorse feelings of suspicion regarding "what is going on" (without clarifying). -He will be treated with Haldol decanoate. (3) Medication nonadherence due to hearing impairment: 05/31 -Has been acknowledged by the patient that he has a long history of recurrent nonadherence with psychiatric medications. He offers various reasons for this, including concern about weight gain and, also, because he does not like "how they make [him] feel." However, he does say that he feels that Haldol, is given to him in the emergency department has been very helpful and he is willing to continue to take it. -Material risks and anticipated benefits of Haldol Decanoate were reviewed with the patient, and he indicated understanding. 1 of the questions he asked was, "cannot I just take the pills when I go home?" And I explained to him that, yes, that would be an option but that we are strongly recommending that he take Haldol Decanoate so that, eventually, he will not have to take pills any longer and can just see his doctor or a nurse for a monthly injection (every 4 weeks). The patient said that he likes that idea and will adhere with the recommendation. The patient understands that 1 of the reasons that we are recommending this is his history of nonadherence. Present on Admission?: Yes Inventory Assets Strengths: Motivated to treatment. Supportive family. Supportive friend. Needs: Reduction in psychotic symptoms. More organized thinking. Medication adherence. Risk Factors Assessment Male: Yes : Yes (Multiple psychiatric hospitalizations. Psychotic illness. History of violence. History of self-mutilation.) Do You Have Access To A Gun?: No Health Problems: No Mental Health Diagnoses: Yes Substance Use Disorders: Yes (Patient reports a past history of alcohol abuse, but denies any current history of drug or alcohol misuse.) Previous Attempt: No (The patient's report in this regard is somewhat suspicious, and third-libertarian confirmation will be sought.) Previous Psychiatric Hospitalization: Yes Hopelessness: No Smoker: Yes Protective Factors Assessment Pentecostal Beliefs: No : No Responsible for Young Children: No Employed: No Stable Relationships: Yes Supportive Family: Yes Good Rapport with Provider: No Absence of Any Risk Factors Above: No Psychiatric History Identifying Data GAGE ORTEGA is a 25-year-old M who currently lives on [address] [facility] with his girlfriend. He has been variously diagnosed in the past with schizophrenia and with bipolar disorder. The patient was admitted and was admitted on 05/31/20 16:23 because of violent behavior directed towards the property of others within the context of psychosis. Chief Complaint " I came here to get back on my medications.". History of Present Illness The patient is a 25-year-old man who was admitted through the emergency department after he was brought in by the police on 05/29/2020 for a psychiatric evaluation due to dyscontrol behavior in the community that evidently included shouting, disturbing the peace, and engaging in behaviors that were perceived as potentially threatening. In the emergency department, the patient punched several holes in the pineda while agitated. He offered no explanation other than "[he] felt like it." Initially, the patient was quite paranoid, had great difficulty trusting anyone that he encountered, was very easily agitated and at times physically threatening. In the emergency department he did respond favorably to at least 1 emergency injection of haloperidol, and then voluntarily began taking Haldol 5 mg twice a day with evidence of some continued improvement. The patient, himself, says that he likes Haldol because it makes him "feel better" and "not acting crazy." The patient has a long history of multiple psychiatric hospitalizations and medication nonadherence. Within this context, and given the fact that the current admission seems to have been precipitated by the fact that the patient stopped all of his psychiatric medications several months ago (the patient acknowledges this) and then decompensated, we felt that an important goal of psychiatric hospitalization at this point was to get the patient placed on a Depo form of Haldol (Haldol decanoate) and to further stabilize the patient's condition before feeling safe and returning the patient to the community for ongoing treatment. He will also need to be scheduled for psychiatric outpatient treatment. Past Psychiatric History Previous Psych History: Patient acknowledges that he has history of multiple psychiatric hospitalizations but tells me that he prefers not to talk about because "it is in the past." Initially, he was willing to acknowledge that he has been at [facility] several times. The patient also acknowledges that he regularly stops his psychiatric medications. Current Psychiatric Diagnosis: Schizoaffective disorder, bipolar type Outpatient Services: Patient reports that he is not currently in outpatient treatment and stopped going a number of months ago. He tells us that he is interested in getting a psychiatrist and a therapist at the [facility] offices on [address] [facility] in [place]. Indicates that he may have received treatment at this office in the past. Previous Psych Admissions: As noted above, the patient references multiple psychiatric hospitalizations, beginning, he says, in childhood. He mentions [place], [place], and [facility]. Do You Have Access To A Gun?: No History of Previous Suicide Attempt: No (The veracity of the patient in this regard is suspect. I happened to notice that he had split his tongue into and it has healed. He does acknowledge self-mutilation.) Past Head Trauma/Neuro History History of Concussion/Seizure: No Allergies Allergy/AdvReac Type Severity Reaction Status Date / Time No Known Drug Allergies Allergy Verified 04/26/20 13:48 Home Medications Home Medications Medication Instructions Recorded Confirmed Type No Known Home Medications 05/29/20 05/29/20 History Family History Family History of: Doesn't Know Alcohol History Hx of Alcohol Use Over the Past 12 Months: No Smoking Use Have You Smoked or Used Tobacco Products in the Last 30 Days: Yes tobacco type: smokeless tobacco Smoking Status: Former smoker Substance History Hx of Prescription Med Misuse Over the Past 12 Months: No Hx of Over the Counter Med Misuse Over the Past 12 Months: No Hx of Inhalent Misuse Over the Past 12 Months: No Hx of Organic Substance Use Over the Past 12 Months: No Hx of Illegal Substances/Street Drug Use Over Past 12 Months: No (The patient denies any history of illicit substance abuse. Again, the patient's reliability is suspect. The patient's toxicology screen at admission was negative.) Personal History Living Arrangements: Apartment Living Arrangements Comments: Patient says that he lives with his girlfriend, Korina [phone] Born In: [place], per patient Highest Grade Completed: High School Graduate Employment Status: Disabled Marital Status: Living w/ Signif. Other Number Of Children: None Beliefs That Will Affect Care: None Current Legal Problems: No Hx Legal Problems: No (Per patient) Hx Traumatic Life Events: No (The patient seemed to minimize in response to most questions.) Patient History Medical History Acid reflux OCCASSIONAL/PT REPORTS FROM CHEWING TOBACCO Bipolar I disorder Drug abuse Hypertension Recurrent epistaxis Schizophrenia Surgical History History of inguinal hernia repair History of tonsillectomy Family History Mother Alcohol abuse Anxiety Asthma Depression Grandfather (Maternal) Colorectal cancer Hypertension Myocardial infarction Father Depression Grandfather (Paternal) Diabetes Myocardial infarction Sister Substance abuse Brother Substance abuse Grandmother (Maternal) Lung disease Denies family history of Ovarian cancer Prostate cancer Breast cancer Social History Smoking Status: Former smoker Tobacco Type: Cigarettes Cigarettes Per Day: 10 CIGS PER DAY/ ADVISED NPO; Hx Alcohol Use: No Hx Substance Use: No Preferred Language: Armenian Communication Ability: Effective Visual Impairment: No Limitations Hearing Ability: Normal Manager Print Required: No Beliefs That Will Affect Care: None Current Living Situation: Significant Other Current Living Situation Comment: Girlfriend current occupational status: disabled Feels Safe at Home: Yes Review of Systems Review of Systems: All systems reviewed & are unremarkable except as noted in HPI & below At least 10 systems were reviewed as part of the psychiatric ad mission assessment. In addition, the admission physical examination, somatic history, and review of systems completed by Dr. Dani Mckeon have been reviewed and are excepted for purposes of medical clearance to the behavioral health unit. Physical Exam Psychiatric: Orientation: alert, oriented x 3 and cooperative Apperance: appropriately dressed and appropriately groomed Eye Contact: + fair eye contact Motor Behavior: steady gait and station The patient speech is spontaneous but somewhat monotonous in tone Affect: + blunted affect Somewha t odd "Good mood." Thought Process: + tangential thought process, + perseveration and + concrete thought process Thought Content: + delusions (The patient suspects that he is being persecuted by various unknown persons. ) Suicidal Thoughts: denies suicidal thoughts Homicidal Thoughts: denies homicidal thoughts Hallucinations: + auditory hallucinations (The patient answers questions regarding perceptual disturbances and a highly convoluted fashion, but eventually indicates that he sometimes does hear voices that other people do not.) Very concrete, assessment of the patient's cognitive skills is difficult. He also tends to minimize and it is not clear how much of his actual history he is able to remember. He does, for example, remember that he punched holes in the a wall in the emergency room, but he says that he does not remember why other than "I guess I felt like it." Estimated Intelligence: + below average estimated intelligence The patient reports that he is a high school graduate, but based on his fairly limited vocabulary (he often asks for explanations as to the meaning of fairly common words), and his degree of concrete thinking I would estimate the patient's intelligence to be below average. Insight: + limited insight The patient does acknowledge his need for treatment. He also says that he thinks that his neighbor was right that he was talking too much and being too active before he came into the hospital. Judgement: + fair judgement Vital Signs (Past 24 Hours): Last Vital Signs Temp 36.6 C 05/31/20 08:00 Pulse 72 05/31/20 16:39 Resp 17 05/31/20 16:39 BP 112/78 05/31/20 16:39 Pulse Ox 98 05/31/20 16:39 Results & Data ([facility]) Current Inpatient Medications Current Inpatient Medications: Current Inpatient Medications Acetaminophen (Acetaminophen 325 Mg Tab) 650 mg PO Q4H PRN PRN Reason: Headache or Minor Fever Stop: 06/30/20 16:22 Al Hydrox/Mg Hydrox/Simethicone (Aluminum/Magnesium Susp 30 Ml Udc) 30 ml PO Q4H PRN PRN Reason: GI Upset Stop: 06/30/20 16:22 Bismuth Subsalicylate (Bismuth Subsalicylate Per Ml Omnicell Charge) 15 ml PO PRN PRN PRN Reason: Loose Stool Stop: 06/30/20 16:22 Haloperidol (Haloperidol 5 Mg Tab) 5 mg PO BID DEVI Stop: 06/30/20 20:59 Haloperidol (Haloperidol 5 Mg Tab) 5 mg PO Q6H PRN PRN Reason: agitation/psychosis Stop: 06/30/20 16:25 Haloperidol Lactate (Haloperidol Lactate 5 Mg/Ml 1 Ml Vial) 10 mg IM Q6H PRN PRN Reason: Agitation/Severe Psychosis Stop: 06/30/20 16:26 Hydroxyzine HCl (Hydroxyzine Hcl 25 Mg Tab) 50 mg PO HSZ PRN PRN Reason: Insomnia Stop: 06/30/20 16:22 Hydroxyzine HCl (Hydroxyzine Hcl 25 Mg Tab) 25 mg PO Q4H PRN PRN Reason: Anxiety Stop: 06/30/20 16:22 Lorazepam (Lorazepam 1 Mg Tab) 1 mg PO Q6H PRN PRN Reason: Anxiety/Agitation Stop: 06/30/20 16:25 Lorazepam (Lorazepam 2 Mg/Ml Vial (Im Use)) 2 mg IM Q6H PRN PRN Reason: Agitation/Severe Psychosis Stop: 06/30/20 16:29 Magnesium Hydroxide (Magnesium Hydroxide Susp 30 Ml Udc) 30 ml PO DAILY PRN PRN Reason: Constipation Stop: 06/30/20 16:22 Nicotine Polacrilex (Nicotine Polacrilex 2 Mg Gum) 1 piece MT PRN PRN PRN Reason: other Stop: 06/30/20 13:26 Last Admin: 05/31/20 13:36 Dose: 1 piece Documented by: Nicotine Polacrilex (Nicotine Polacrilex 2 Mg Gum) 1 piece MT PRN PRN PRN Reason: nicotine cravings Stop: 06/30/20 16:24 Sodium Chloride (Sodium Chloride 0.65% Na Soln 45 Ml ([place])) 1 - 2 sprays NA PRN PRN PRN Reason: Nasal Dryness/Congestion Stop: 06/30/20 16:22
[2020-05-31] MEDS ORDERED: haloperidoL 5 MG TAB PO STA (18:26)
[2020-05-31] MEDS ORDERED: HALOPERIDOL DECANOATE INJ 50 MG/ML VIAL IM ONE (18:27)
[2020-05-31] MEDS ORDERED: haloperidoL 5 MG TAB PO ONE (18:30)
[2020-05-31] MEDS ORDERED: haloperidoL 5 MG TAB PO SCH (21:00)
[2020-06-01] MEDS: haloperidoL 5 MG TAB PO SCH ×2 (07:30→20:31)
[2020-06-01] MEDS: NICOTINE POLACRILEX 2 MG GUM MT PRN (09:28)
--- NOTE | 2020-06-01 11:40 | Psychiatric Progress Note ---
Date of Service June 01, 2020 Impression / Recommendations Impression This 25-year-old man reports a fairly extensive history of multiple psychiatric hospitalizations (including but not limited to [facility] and [place]) and given various diagnoses over the years including: schizophrenia as well as more recently bipolar disorder. As of 05/31/[address] Harvey the diagnosis seemed more consistent with schizophrenia "His thinking is somewhat disorganized and his speech is, at times, idiosyncratic. He seems to have vague, non-systematized delusions and heavily strongly suggest to us that he has a history of auditory hallucinations. The patient's thought processes include perseveration and echolalia, and were not currently observing pressured speech or flight of ideas. He indicates that he is not feeling particularly depressed, and his affect is mildly hebophrenic, but not elated or expansive or overly irritable. He seems to be responding favorably to Haldol 5 mg twice a day." He was placed on Haldol decanoate 50 mg IM 05/31/20 and will get 50 mg IM on 06/03/20 . We will also continue oral Haldol 5 mg twice a day until 06/03/2020. The plan will be to return the patient to the community for continued care and treatment on an outpatient basis soon as jon mann (1) Schizoaffective disorder, bipolar type: 05/31 -The patient reportedly had initially carried a diagnosis of schizophrenia and was later given a diagnosis of bipolar disorder. Based on the presenting confluence of symptoms we believe that the most appropriate diagnosis is schizoaffective disorder, bipolar type. -The patient has been admitted to the [facility] behavioral health unit and has been referred for individual, group, recreational, and, as appropriate, family therapy. We are also going to be continuing Haldol 5 mg twice daily started in the emergency department, and, at the same time, we will be adding Haldol decanoate 50 mg today and 50 mg on 06/03/2020. -The patient will be closely observed during the hospital stay. 06/01 - patient remains cognitively concrete, mildly flat affect but reports tolerability of haldol. There is some concern he is having toungue movements when asked but I could not see these on objective exam so it is unclear if he indeed is having movements at times OR he has some level of suggestibility as he seemed to say they were happening, but then when not seen "well they are not happening." Will need to monitor for s/sx of TD now and as he moves to outpatient. All Antipsychotics confer some risk. It may be helpful to monitor, and also attempt to find out if he has taken and tolerated abilify as it has MIKE option and maybe and alternative to haldol decanoate in the future - patient is 201 at this time, will discuss with team if a 201 to 304 conversion makes sense or not at this time given level of non-compliance in the past. (2) Persecution, delusion: 05/31 -There is been reported that the patient has a long history of delusions of persecution and that, prior to admission, he was having difficulty trusting people at home, and, most recently, in the emergency department. However, his level of trust seems to have improved significantly. He continues to endorse feelings of suspicion regarding "what is going on" (without clarifying). -He will be treated with Haldol decanoate. 06/01 - denies paranoia or persecution today (3) Medication nonadherence due to hearing impairment: 05/31 -Has been acknowledged by the patient that he has a long history of recurrent nonadherence with psychiatric medications. He offers various reasons for this, including concern about weight gain and, also, because he does not like "how they make [him] feel." However, he does say that he feels that Haldol, is given to him in the emergency department has been very helpful and he is willing to continue to take it. -Material risks and anticipated benefits of Haldol Decanoate were reviewed with the patient, and he indicated understanding. 1 of the questions he asked was, "cannot I just take the pills when I go home?" And I explained to him that, yes, that would be an option but that we are strongly recommending that he take Haldol Decanoate so that, eventually, he will not have to take pills any longer and can just see his doctor or a nurse for a monthly injection (every 4 weeks). The patient said that he likes that idea and will adhere with the recommendation. The patient understands that 1 of the reasons that we are recommending this is his history of nonadherence. Inventory Assets Strengths: Motivated to treatment. Supportive family. Supportive friend. Needs: Reduction in psychotic symptoms. More organized thinking. Medication adherence. Risk Factors Assessment Male: Yes : Yes (Multiple psychiatric hospitalizations. Psychotic illness. History of violence. History of self-mutilation.) Do You Have Access To A Gun?: No Health Problems: No Mental Health Diagnoses: Yes Substance Use Disorders: Yes (Patient reports a past history of alcohol abuse, but denies any current history of drug or alcohol misuse.) Previous Attempt: No (The patient's report in this regard is somewhat suspicious, and third-alliance party confirmation will be sought.) Previous Psychiatric Hospitalization: Yes Hopelessness: No Smoker: Yes Protective Factors Assessment Mormon Beliefs: No : No Responsible for Young Children: No Employed: No Stable Relationships: Yes Supportive Family: Yes Good Rapport with Provider: No Absence of Any Risk Factors Above: No Interval History Identifying Information GAGE ORTEGA is a 25-year-old M who currently lives on [facility] with his girlfriend. He has been variously diagnosed in the past with schizophrenia and with bipolar disorder. The patient was admitted and was admitted on 05/31/20 16:23 because of violent behavior directed towards the property of others within the context of psychosis. Chief Complaint "I want to talk to my girlfriend on video call". Review of Systems Sleep Information Total Hours of Sleep: 8.25 Meal Information Percent Meal Consumed - Dinner: 100 Subjective Subjective Patient was seen & assessed and interval progress reviewed with nursing and social work. Per nursing staff the patient continues to take po haldol (overlap between the decanoate shot 05/31, second 06/03). He seems to be tolerating this well. He had some poor boundaries last evening with reaching to grab nurse's hand but was easily redirected. He remains perseverative on the address where he will be discharged to, but is not requesting discharge. He is attending groups but leaves them, He was focussed this AM on trimming his pierre "they give you a razor in [facility]." He slept well and has not required any prns for agitation. He remains on MNPR Met with patient in his room today. He is calm and sits down immediately stating "I want to talk to my girlfriend on video call." Reassured him that the nursing staff is aware and will look into this option. He notes "it would be better if I could see her in person." He denies akathisia, EPS or dystonia from his medication. He does note he can feel his tongue move at times, when asking him to protrude his tongue I do not see movement or fasciculations. AIMS score is 0 He states 'I feel better than when I came....I can sleep, my thoughts are good." He states his voices are gone, denying any AVH, and does not appear to be responding to internal stimuli. He states his mood is "okay....I do want to be discharged" When provider noted we plan to give a second injection 06/03, and establish an appointment with outpatient prescriber he states he is willing to stay for that to happen. He denies feeling anxious. He denies physical concerns stating he is eating, and sleeping and using the restroom well. Physical Exam Psychiatric Orientation: alert and oriented x 3 dressed in t-shirt and shorts, clean, hair is disheveled Eye Contact: good eye contact Motor Behavior: steady gait and station, no abnormal motor movements, + EPS and + akathisia Speech: normal rate/rhythm/volume of speech (even to flat tone) Affect: + flat affect "okay" appears blunted Thought Process: clear/coherent thought process Thought Content: + preoccupation (with video call with his girlfriend) Suicidal Thoughts: denies suicidal thoughts Homicidal Thoughts: denies homicidal thoughts Hallucinations: no auditory hallucinations limited attention as he derails back to video call wtih his girlfriend, easily redirected , limited insight/recall of events leading to hospital stay, states he remembers business consult brining him in for no good reason other than he was out late one night very concrete, and simple in his intellect Insight: + limited insight Judgement: + limited judgement Vital Signs (Past 24 Hours) Last Vital Signs Temp 36.7 C 06/01/20 06:41 Pulse 73 06/01/20 06:42 Resp 18 06/01/20 06:41 BP 116/68 06/01/20 06:42 Pulse Ox 98 05/31/20 16:39 Results & Data ([facility]) Current Inpatient Medications Current Inpatient Medications: Current Inpatient Medications Acetaminophen (Acetaminophen 325 Mg Tab) 650 mg PO Q4H PRN PRN Reason: Headache or Minor Fever Stop: 06/30/20 16:22 Al Hydrox/Mg Hydrox/Simethicone (Aluminum/Magnesium Susp 30 Ml Udc) 30 ml PO Q4H PRN PRN Reason: GI Upset Stop: 06/30/20 16:22 Benztropine Mesylate (Benztropine Mesylate 1 Mg Tab) 2 mg PO BID PRN PRN Reason: EPS Stop: 06/30/20 17:33 Benztropine Mesylate (Benztropine Mesylate 1 Mg/Ml 2 Ml Amp) 2 mg IM DAILY PRN PRN Reason: dystonic reaction Stop: 06/30/20 17:33 Bismuth Subsalicylate (Bismuth Subsalicylate Per Ml Omnicell Charge) 15 ml PO PRN PRN PRN Reason: Loose Stool Stop: 06/30/20 16:22 Haloperidol (Haloperidol 5 Mg Tab) 5 mg PO Q6H PRN PRN Reason: agitation/psychosis Stop: 06/30/20 16:25 Haloperidol (Haloperidol 5 Mg Tab) 5 mg PO BID DEVI Stop: 06/02/20 20:59 Last Admin: 06/01/20 07:30 Dose: 5 mg Documented by: Haloperidol Decanoate (Haloperidol Decanoate Inj 50 Mg/Ml Vial) 50 mg IM ONE ONE Stop: 06/03/20 09:29 Haloperidol Lactate (Haloperidol Lactate 5 Mg/Ml 1 Ml Vial) 10 mg IM Q6H PRN PRN Reason: Agitation/Severe Psychosis Stop: 06/30/20 16:26 Hydroxyzine HCl (Hydroxyzine Hcl 25 Mg Tab) 50 mg PO HSZ PRN PRN Reason: Insomnia Stop: 06/30/20 16:22 Hydroxyzine HCl (Hydroxyzine Hcl 25 Mg Tab) 25 mg PO Q4H PRN PRN Reason: Anxiety Stop: 06/30/20 16:22 Lorazepam (Lorazepam 1 Mg Tab) 1 mg PO Q6H PRN PRN Reason: Anxiety/Agitation Stop: 06/30/20 16:25 Lorazepam (Lorazepam 2 Mg/Ml Vial (Im Use)) 2 mg IM Q6H PRN PRN Reason: Agitation/Severe Psychosis Stop: 06/30/20 16:29 Magnesium Hydroxide (Magnesium Hydroxide Susp 30 Ml Udc) 30 ml PO DAILY PRN PRN Reason: Constipation Stop: 06/30/20 16:22 Nicotine Polacrilex (Nicotine Polacrilex 2 Mg Gum) 1 piece MT PRN PRN PRN Reason: nicotine cravings Stop: 06/30/20 16:24 Last Admin: 06/01/20 09:28 Dose: 1 piece Documented by: Sodium Chloride (Sodium Chloride 0.65% Na Soln 45 Ml ([place])) 1 - 2 sprays NA PRN PRN PRN Reason: Nasal Dryness/Congestion Stop: 06/30/20 16:22 Mental Health & Subst Abuse Tx Therapist Name of Therapist: none Mobile Device Engineer Name of Mobile Device Engineer: elias to get one Post Discharge Appointments Primary Care Physician Name Of Family Doctor: Dr. Fuentes, [facility] ([facility] [place])
[2020-06-02] MEDS: haloperidoL 5 MG TAB PO SCH (08:27)
[2020-06-02] MEDS: NICOTINE POLACRILEX 2 MG GUM MT PRN ×5 (09:08→20:35)
--- NOTE | 2020-06-02 09:10 | Psychiatric Progress Note ---
Date of Service June 02, 2020 Impression / Recommendations Impression This 25-year-old man reports a fairly extensive history of multiple psychiatric hospitalizations (including but not limited to [facility] and [place]) and given various diagnoses over the years including: schizophrenia as well as more recently bipolar disorder. As of 05/31/[address] Harvey the diagnosis seemed more consistent with schizophrenia "His thinking is somewhat disorganized and his speech is, at times, idiosyncratic. He seems to have vague, non-systematized delusions and heavily strongly suggest to us that he has a history of auditory hallucinations. The patient's thought processes include perseveration and echolalia, and were not currently observing pressured speech or flight of ideas. He indicates that he is not feeling particularly depressed, and his affect is mildly hebophrenic, but not elated or expansive or overly irritable. He seems to be responding favorably to Haldol 5 mg twice a day." He was placed on Haldol decanoate 50 mg IM 05/31/20 and will get 50 mg IM on 06/03/20 . We will also continue oral Haldol 5 mg twice a day until 06/03/2020. The plan will be to return the patient to the community for continued care and treatment on an outpatient basis soon as jon mann (1) Schizoaffective disorder, bipolar type: 05/31 -The patient reportedly had initially carried a diagnosis of schizophrenia and was later given a diagnosis of bipolar disorder. Based on the presenting confluence of symptoms we believe that the most appropriate diagnosis is schizoaffective disorder, bipolar type. -The patient has been admitted to the [facility] behavioral health unit and has been referred for individual, group, recreational, and, as appropriate, family therapy. We are also going to be continuing Haldol 5 mg twice daily started in the emergency department, and, at the same time, we will be adding Haldol decanoate 50 mg today and 50 mg on 06/03/2020. -The patient will be closely observed during the hospital stay. 06/01 and 06/02 - patient remains cognitively concrete, mildly flat affect but reports tolerability of haldol. There is some concern he is having toungue movements when asked but I could not see these on objective exam so it is unclear if he indeed is having movements at times OR he has some level of suggestibility as he seemed to say they were happening, but then when not seen "well they are not happening." Will need to monitor for s/sx of TD as 06/01 he reported some, 06/02 he denied having them. [All Antipsychotics confer some risk. It may be helpful to monitor, and also attempt to find out if he has taken and tolerated abilify as it has MIKE option and maybe and alternative to haldol decanoate in the future] - patient is 201 at this time, will discuss with team if a 201 to 304 conversion makes sense or not at this time given level of non-compliance in the past. (2) Persecution, delusion: 05/31 -There is been reported that the patient has a long history of delusions of persecution and that, prior to admission, he was having difficulty trusting people at home, and, most recently, in the emergency department. However, his level of trust seems to have improved significantly. He continues to endorse feelings of suspicion regarding "what is going on" (without clarifying). -He will be treated with Haldol decanoate. 06/01 and 06/02 - denies paranoia or persecution today (3) Medication nonadherence due to hearing impairment: 05/31 -Has been acknowledged by the patient that he has a long history of recurrent nonadherence with psychiatric medications. He offers various reasons for this, including concern about weight gain and, also, because he does not like "how they make [him] feel." However, he does say that he feels that Haldol, is given to him in the emergency department has been very helpful and he is willing to continue to take it. -Material risks and anticipated benefits of Haldol Decanoate were reviewed with the patient, and he indicated understanding. 1 of the questions he asked was, "cannot I just take the pills when I go home?" And I explained to him that, yes, that would be an option but that we are strongly recommending that he take Haldol Decanoate so that, eventually, he will not have to take pills any longer and can just see his doctor or a nurse for a monthly injection (every 4 weeks). The patient said that he likes that idea and will adhere with the recommendation. The patient understands that 1 of the reasons that we are recommending this is his history of nonadherence. Inventory Assets Strengths: Motivated to treatment. Supportive family. Supportive friend. Needs: Reduction in psychotic symptoms. More organized thinking. Medication adherence. Risk Factors Assessment Male: Yes : Yes (Multiple psychiatric hospitalizations. Psychotic illness. History of violence. History of self-mutilation.) Do You Have Access To A Gun?: No Health Problems: No Mental Health Diagnoses: Yes Substance Use Disorders: Yes (Patient reports a past history of alcohol abuse, but denies any current history of drug or alcohol misuse.) Previous Attempt: No (The patient's report in this regard is somewhat suspicious, and third-green party confirmation will be sought.) Previous Psychiatric Hospitalization: Yes Hopelessness: No Smoker: Yes Protective Factors Assessment Jain Beliefs: No : No Responsible for Young Children: No Employed: No Stable Relationships: Yes Supportive Family: Yes Good Rapport with Provider: No Absence of Any Risk Factors Above: No Interval History Identifying Information GAGE ORTEGA is a 25-year-old M who [place] on [facility] [place] with his girlfriend. He has been variously diagnosed in the past with schizophrenia and with bipolar disorder. The patient was admitted and was admitted on 05/31/20 16:23 because of violent behavior directed towards the property of others within the context of psychosis. Chief Complaint "Are you the one who is going to help me call my girlfriend?". Review of Systems Sleep Information Total Hours of Sleep: 8.0 Meal Information Percent Meal Consumed - Breakfast: 100 Percent Meal Consumed - Lunch: 100 Percent Meal Consumed - Dinner: 100 Subjective Subjective Patient was seen & assessed and interval progress reviewed with nursing and social work Per staff the patient is very concrete, and childlike and mildly disinhibited, excited about little things, e.g. after reveiw of his treatment plan he asked the nurse "can I hug you?" he was told "no" but proceeded to hug the nurse anyway. The social work staff confirmed plan for meeting via phone with patient, and his GF this AM and he asked "can I hug you?" he was told "no" but did restrain himself. He wanted the evening therapist to tuck him in with a blanket. He reported his hallucinations are gone but that he likes his prior hallucinations. Met with patient in his room with door open. He states he is feeling "good" and is planning to call GF with "that woman" today. He is very motivated to talk about discharge "you are not going to keep me for weeks and weeks are you?" He wants to see Dr Galaviz at discharge and when provider noted we needed to find out if Dr Galaviz can manage his injection patient said, "Maybe I can take pills. My girlfriend said she would help me." Provider recommended he continue the injection and he agreed he was willing and asked "are you able to help me find a doctor who can give the shot if Dr Galaviz can't?" Provider agreed that is one of the reasons he needs to remain in the hospital at this time so that we can establish firm dates and times for appointments when he leaves the hospital. He states his mood is good, denies feeling down or anxious, states his AH are gone. He slept well, eating well, and denies physical concerns at this time. Denies EPS, dystonia or akathesia when asked in layman's terms. He denies tongue movements today. Physical Exam Vital Signs (Past 24 Hours) Last Vital Signs Temp 36.9 C 06/02/20 06:51 Pulse 68 06/02/20 06:52 Resp 18 06/02/20 06:51 BP 121/73 06/02/20 06:52 Pulse Ox 98 05/31/20 16:39 Results & Data ([facility]) Current Inpatient Medications Current Inpatient Medications: Current Inpatient Medications Acetaminophen (Acetaminophen 325 Mg Tab) 650 mg PO Q4H PRN PRN Reason: Headache or Minor Fever Stop: 06/30/20 16:22 Al Hydrox/Mg Hydrox/Simethicone (Aluminum/Magnesium Susp 30 Ml Udc) 30 ml PO Q4H PRN PRN Reason: GI Upset Stop: 06/30/20 16:22 Benztropine Mesylate (Benztropine Mesylate 1 Mg Tab) 2 mg PO BID PRN PRN Reason: EPS Stop: 06/30/20 17:33 Benztropine Mesylate (Benztropine Mesylate 1 Mg/Ml 2 Ml Amp) 2 mg IM DAILY PRN PRN Reason: dystonic reaction Stop: 06/30/20 17:33 Bismuth Subsalicylate (Bismuth Subsalicylate Per Ml Omnicell Charge) 15 ml PO PRN PRN PRN Reason: Loose Stool Stop: 06/30/20 16:22 Haloperidol (Haloperidol 5 Mg Tab) 5 mg PO Q6H PRN PRN Reason: agitation/psychosis Stop: 06/30/20 16:25 Haloperidol (Haloperidol 5 Mg Tab) 5 mg PO BID DEVI Stop: 06/02/20 20:59 Last Admin: 06/02/20 08:27 Dose: 5 mg Documented by: Haloperidol Decanoate (Haloperidol Decanoate Inj 50 Mg/Ml Vial) 50 mg IM ONE ONE Stop: 06/03/20 09:29 Haloperidol Lactate (Haloperidol Lactate 5 Mg/Ml 1 Ml Vial) 10 mg IM Q6H PRN PRN Reason: Agitation/Severe Psychosis Stop: 06/30/20 16:26 Hydroxyzine HCl (Hydroxyzine Hcl 25 Mg Tab) 50 mg PO HSZ PRN PRN Reason: Insomnia Stop: 06/30/20 16:22 Hydroxyzine HCl (Hydroxyzine Hcl 25 Mg Tab) 25 mg PO Q4H PRN PRN Reason: Anxiety Stop: 06/30/20 16:22 Lorazepam (Lorazepam 1 Mg Tab) 1 mg PO Q6H PRN PRN Reason: Anxiety/Agitation Stop: 06/30/20 16:25 Lorazepam (Lorazepam 2 Mg/Ml Vial (Im Use)) 2 mg IM Q6H PRN PRN Reason: Agitation/Severe Psychosis Stop: 06/30/20 16:29 Magnesium Hydroxide (Magnesium Hydroxide Susp 30 Ml Udc) 30 ml PO DAILY PRN PRN Reason: Constipation Stop: 06/30/20 16:22 Nicotine Polacrilex (Nicotine Polacrilex 2 Mg Gum) 1 piece MT PRN PRN PRN Reason: nicotine cravings Stop: 06/30/20 16:24 Last Admin: 06/01/20 09:28 Dose: 1 piece Documented by: Sodium Chloride (Sodium Chloride 0.65% Na Soln 45 Ml ([place])) 1 - 2 sprays NA PRN PRN PRN Reason: Nasal Dryness/Congestion Stop: 06/30/20 16:22 Mental Health & Subst Abuse Tx Therapist Name of Therapist: none Wire Worker Name of Wire Worker: elias schmitt get one Post Discharge Appointments Primary Care Physician Name Of Family Doctor: Dr. Fuentes, [facility] ([facility] [place]
[2020-06-02] MEDS: BENZTROPINE MESYLATE 1 MG TAB PO PRN (16:48)
[2020-06-03] MEDS: BENZTROPINE MESYLATE 1 MG TAB PO PRN (07:27)
[2020-06-03 07:47] LABS: Glucose Fasting 83 mg/dl (70-99)
[2020-06-03 07:54] LABS: Chol HDL Ratio 3; Cholesterol 115 mg/dl (0-200); HDL Cholesterol 36 mg/dl; LDL Cholesterol Calculated 43 mg/dl; Triglycerides 182 mg/dl (0-150); VLDL Cholesterol 36 mg/dl
--- NOTE | 2020-06-03 08:33 | Discharge Summary ---
Date of Service June 03, 2020 History of Present Illness The patient is a 25-year-old man who was admitted through the emergency department after he was brought in by the police on 05/29/2020 for a psychiatric evaluation due to dyscontrol behavior in the community that evidently included shouting, disturbing the peace, and engaging in behaviors that were perceived as potentially threatening. In the emergency department, the patient punched several holes in the pineda while agitated. He offered no explanation other than "[he] felt like it." Initially, the patient was quite paranoid, had great difficulty trusting anyone that he encountered, was very easily agitated and at times physically threatening. In the emergency department he did respond favorably to at least 1 emergency injection of haloperidol, and then voluntarily began taking Haldol 5 mg twice a day with evidence of some continued impr ovement. The patient, himself, says that he likes Haldol because it makes him "feel better" and "not acting crazy." The patient has a long history of multiple psychiatric hospitalizations and medication nonadherence. Within this context, and given the fact that the current admission seems to have been precipitated by the fact that the patient stopped all of his psychiatric medications several months ago (the patient acknowledges this) and then decompensated, we felt that an important goal of psychiatric hospitalization at this point was to get the patient placed on a Depo form of Haldol (Haldol decanoate) and to further stabilize the patient's condition before feeling safe and returning the patient to the community for ongoing treatment. He will also need to be scheduled for psychiatric outpatient treatment. Physical Exam Psychiatric Orientation: alert and cooperative Apperance: appropriately dressed, + disheveled and appeared stated age Overweight, multiple tattoos. Seated in no acute distress, calm and cooperative. Eye Contact: good eye contact Motor Behavior: steady gait and station and no abnormal motor movements Speech: normal rate/rhythm/volume of speech Affect: euthymic affect and mood congruent with affect "Pretty good." Thought Process: goal directed thought process and + concrete thought process Thought Content: reality based without delusions Suicidal Thoughts: denies suicidal thoughts Hallucinations: no auditory hallucinations and no visual hallucinations Cognition: recent memory grossly intact, attention grossly intact and language grossly intact Insight: + fair insight Judgement: + fair judgement Vital Signs (Past 24 Hours) Last Vital Signs Temp 37.0 C 09/13/20 20:34 Pulse 68 06/02/20 06:52 Resp 18 06/02/20 06:51 BP 121/73 06/02/20 06:52 Pulse Ox 98 05/31/20 16:39 Principal Diagnosis Schizoaffective disorder bipolar type Suspect borderline intellectual functioning (not confirmed with IQ) Psychiatric Data The patient was hospitalized for 3 days. He was started on Haldol Decanoate, and tolerated it well. Benztropine was ordered as needed for EPS and reports of throat tightness. Paranoia and delusions of persecution resolved, and he consistently denied thoughts of harming himself or others. He attended and participated in groups and therapy, reported improved mood, and was interacting appropriately with staff and peers. He had a family meeting with his girlfriend whom he lives with on 06/02/2020, who was supportive and denied acute safety concerns with discharge. She stated that their landlord stated he could only continue to live there if he was in treatment and taking medication, and he agreed to continue with the Haldol Decanoate. He was referred for a blended transplant case manager and to [facility] for psychiatry and therapy. He was observed to be eating and sleeping well, performing ADLs independently, and was compliant with medications in the hospital. He was calm and cooperative on the inpatient unit, was not aggressive or threatening, and did not require IM medications, although he had required them while in the emergency room due to acute agitation. Day of Discharge Assessment Staff report the patient is attending and participating in groups, frequently coming to the nurses station with request/questions, very focused on discharge. He is reporting good mood and denying hallucinations and thoughts of harming himself or others. He has been attending groups and participating appropriately. On my assessment, he states that his mood is "pretty good," much improved from admission, and that he would like to go home today. He states his goals are "to stay on my meds this time, my landlord won't let me stay there unless I'm on medication." He thinks the medication is helping with "the voices," and denies any auditory hallucinations since admission. He denies anger outbursts, SI, and HI. He wants to return home with his girlfriend, and denies any safety concerns with leaving the hospital. He denies side effects to medications, and is willing to follow-up at [facility]. He expressed concerns that [facility] is "really an elementary school," and had difficulty processing when advised that the building was previously a school, but is now a mental health clinic. A second discharge planning meeting was held with his girlfriend today by phone, after she called and told the social psychologist she was concerned because during her conversation with the patient last night, he was talking about his teeth and fillings. In the past, he has stated that his feelings interfere with the phone or cause an echo sound. The patient clarified during the meeting that he is no longer having hallucinations and that he is at baseline, and his girlfriend was willing to proceed with the discharge plan. Transition of Care Transition Of Care Record: was reviewed with the patient Advance Directives Advance Directives Information Provided: Yes Advance Directives: No Mental Health Advance Directive: No Advance Directives on File: No Living Will: No Power of Motor Vehicle License Clerk: No Advance Directives Reason:: Declines as Mental Health Visit. Risk Factors Assessment Risk factors were mitigated by admission to the inpatient unit, use of medications to target mood and psychotic symptoms, use of a long-acting injectable due to a history of noncompliance with oral medications, participation in groups and therapy, working on healthy coping skills and discharge safety plan, involvement of his girlfriend whom he lives with in a family meeting with the social psychologist, and referral for outpatient services including case management, psychiatry, and therapy. He has demonstrated improvement in mood and psychotic symptoms, is tolerating medication well and is now on a long-acting injectable antipsychotic, is consistently denying thoughts of harming himself or others, has been calm and cooperative on the [facility], and had a family meeting with his girlfriend who denies acute safety concerns. He is requesting discharge, and as he is no longer at acute risk of harm to himself or others, can be managed as an outpatient at this time. Male: Yes : Yes Do You Have Access To A Gun?: No Health Problems: No Mental Health Diagnoses: Yes Substance Use Disorders: Yes (Patient reports a past history of alcohol abuse, but denies any current history of drug or alcohol misuse.) Previous Attempt: No Family History of Suicide: No Previous Psychiatric Hospitalization: Yes Hopelessness: No Smoker: Yes Protective Factors Assessment Orthodox Beliefs: No : No Responsible for Young Children: No Employed: No Stable Relationships: Yes Supportive Family: Yes Good Rapport with Provider: No Absence of Any Risk Factors Above: No Tobacco Cessation at Discharge Tobacco Cessation Medication Prescribed at Discharge: Offered & Prescribed Practical counseling provided including: recognizing danger situations, developing coping skills and providing basic information about quitting Tobacco Cessation Outpatient Followup: Outpatient referral made to ([facility]) Total Time Total Time Spent: Greater Than 30 Minutes Total Time Includes: Examination of the patient, Discharge Planning and Medication Reconciliation Discharge Data Consultations 05/31/20 09:25 Consult Psychiatry Stat Lab Results 05/29/20 05/29/20 05/29/20 21:41 21:41 21:41 WBC 9.42 RBC 5.27 Hgb 15.5 Hct 44.7 MCV 84.8 MCH 29.4 MCHC 34.7 RDW Std Deviation 42.1 RDW Coeff of Mita 13.7 Plt Count 288 MPV 9.1 Immature Gran % (Auto) 0.2 Neut % (Auto) 68.7 Lymph % (Auto) 23.1 [place] % (Auto) 5.7 Eos % (Auto) 2.1 Baso % (Auto) 0.2 Neut # (Auto) 6.46 Lymph # (Auto) 2.18 [place] # (Auto) 0.54 Eos # (Auto) 0.20 Baso # (Auto) 0.02 Immature Gran # (Auto) 0.02 Sodium 142 Potassium 3.6 Chloride 110 H Carbon Dioxide 22 Anion Gap 10.0 BUN 10 Creatinine 1.00 Est Cr Clr Drug Dosing 146.0 Est GFR ( Amer) 119.9 Est GFR (Non-Af Amer) 103.4 BUN/Creatinine Ratio 9.8 L Glucose 107 H Fasting Glucose Calcium 9.7 Total Bilirubin 0.5 AST 16 ALT 25 Alkaline Phosphatase 74 Total Protein 7.9 Albumin 4.1 Globulin 3.8 Albumin/Globulin Ratio 1.1 Triglycerides Cholesterol LDL Cholesterol, Calc VLDL Cholesterol, Calc HDL Cholesterol Cholesterol/HDL Ratio TSH 0.641 Urine Color Urine Appearance Urine pH Ur Specific [place] Urine Protein Urine Glucose (UA) Urine Ketones Urine Blood Urine Nitrite Urine Bilirubin Urine Urobilinogen Ur Leukocyte Esterase Urine WBC (Auto) Urine RBC (Auto) U Hyaline Cast (Auto) U Epithel Cells (Auto) Urine Bacteria (Auto) Salicylates < 1.7 L Urine Opiates Screen Ur Methadone, Qual Acetaminophen < 2 L Urine Barbiturates Ur Phencyclidine (PCP) U Amphetamin/Meth Scrn MDMA (Ecstasy) Screen U Benzodiazepines Scrn Ur Cocaine Metabolite U Marijuana (THC) Screen Ethyl Alcohol mg/dL 05/29/20 05/30/20 05/30/20 21:41 01:30 01:30 WBC RBC Hgb Hct MCV MCH MCHC RDW Std Deviation RDW Coeff of Mita Plt Count MPV Immature Gran % (Auto) Neut % (Auto) Lymph % (Auto) [place] % (Auto) Eos % (Auto) Baso % (Auto) Neut # (Auto) Lymph # (Auto) [place] # (Auto) Eos # (Auto) Baso # (Auto) Immature Gran # (Auto) Sodium Potassium Chloride Carbon Dioxide Anion Gap BUN Creatinine Est Cr Clr Drug Dosing Est GFR ( Amer) Est GFR (Non-Af Amer) BUN/Creatinine Ratio Glucose Fasting Glucose Calcium Total Bilirubin AST ALT Alkaline Phosphatase Total Protein Albumin Globulin Albumin/Globulin Ratio Triglycerides Cholesterol LDL Cholesterol, Calc VLDL Cholesterol, Calc HDL Cholesterol Cholesterol/HDL Ratio TSH Urine Color Dark Yellow Urine Appearance Clear Urine pH 5.5 Ur Specific [place] 1.021 Urine Protein 2+ H Urine Glucose (UA) Negative Urine Ketones Trace H Urine Blood Negative Urine Nitrite Negative Urine Bilirubin Negative Urine Urobilinogen Negative Ur Leukocyte Esterase Negative Urine WBC (Auto) 1-5 Urine RBC (Auto) 0-4 U Hyaline Cast (Auto) 5-10 H U Epithel Cells (Auto) 5-10 H Urine Bacteria (Auto) Negative Salicylates Urine Opiates Screen Neg Ur Methadone, Qual Neg Acetaminophen Urine Barbiturates Neg Ur Phencyclidine (PCP) Neg U Amphetamin/Meth Scrn Neg MDMA (Ecstasy) Screen Neg U Benzodiazepines Scrn Neg Ur Cocaine Metabolite Neg U Marijuana (THC) Screen Neg Ethyl Alcohol mg/dL < 3.0 06/03/20 06:59 WBC RBC Hgb Hct MCV MCH MCHC RDW Std Deviation RDW Coeff of Mita Plt Count MPV Immature Gran % (Auto) Neut % (Auto) Lymph % (Auto) [place] % (Auto) Eos % (Auto) Baso % (Auto) Neut # (Auto) Lymph # (Auto) [place] # (Auto) Eos # (Auto) Baso # (Auto) Immature Gran # (Auto) Sodium Potassium Chloride Carbon Dioxide Anion Gap BUN Creatinine Est Cr Clr Drug Dosing Est GFR ( Amer) Est GFR (Non-Af Amer) BUN/Creatinine Ratio Glucose Fasting Glucose 83 Calcium Total Bilirubin AST ALT Alkaline Phosphatase Total Protein Albumin Globulin Albumin/Globulin Ratio Triglycerides 182 H Cholesterol 115 LDL Cholesterol, Calc 43 VLDL Cholesterol, Calc 36 HDL Cholesterol 36 Cholesterol/HDL Ratio 3 TSH Urine Color Urine Appearance Urine pH Ur Specific [place] Urine Protein Urine Glucose (UA) Urine Ketones Urine Blood Urine Nitrite Urine Bilirubin Urine Urobilinogen Ur Leukocyte Esterase Urine WBC (Auto) Urine RBC (Auto) U Hyaline Cast (Auto) U Epithel Cells (Auto) Urine Bacteria (Auto) Salicylates Urine Opiates Screen Ur Methadone, Qual Acetaminophen Urine Barbiturates Ur Phencyclidine (PCP) U Amphetamin/Meth Scrn MDMA (Ecstasy) Screen U Benzodiazepines Scrn Ur Cocaine Metabolite U Marijuana (THC) Screen Ethyl Alcohol mg/dL Hospital Course (1) Schizoaffective disorder, bipolar type: 05/31 -The patient reportedly had initially carried a diagnosis of schizophrenia and was later given a diagnosis of bipolar disorder. Based on the presenting confluence of symptoms we believe that the most appropriate diagnosis is schizoaffective disorder, bipolar type. -The patient has been admitted to the [facility] behavioral health unit and has been referred for individual, group, recreational, and, as appropriate, family thera py. We are also going to be continuing Haldol 5 mg twice daily started in the emergency department, and, at the same time, we will be adding Haldol decanoate 50 mg today and 50 mg on 06/03/2020. -The patient will be closely observed during the hospital stay. 06/01 and 06/02 - patient remains cognitively concrete, mildly flat affect but reports tolerability of Haldol. There is some concern he is having tongue movements when asked but I could not see these on objective exam so it is unclear if he indeed is having movements at times OR he has some level of suggestibility as he seemed to say they were happening, but then when not seen "well they are not happening." Will need to monitor for s/sx of TD as 06/01 he reported some, 06/02 he denied having them. [All Antipsychotics confer some risk. It may be helpful to monitor, and also attempt to find out if he has taken and tolerated Abilify as it has MIKE option and maybe and alternative to haldol decanoate in the future] - patient is 201 at this time, will discuss with team if a 201 to 304 conversion makes sense or not at this time given level of non-compliance in the past. 06/03 -family meeting held with girlfriend yesterday who states patient is much improved, at baseline, and denies safety concerns. Both the patient and his girlfriend are in favor of discharge today. He received a second Haldol Decanoate loading injection today, and will be due for 100 mg injection in 4 weeks (07/01/2020). Will issue a prescription for benztropine as needed for EPS. He has follow-up at [facility]. Considered a 304 IOC, but patient is stating willingness to remain in treatment and is motivated to do so as his landlord has apparently made this a condition of continuing to live in the home. He also has good support from his girlfriend. If he is readmitted and noncompliant, would consider a 304 IOC. (2) Persecution, delusion: 05/31 -There is been reported that the patient has a long history of delusions of persecution and that, prior to admission, he was having difficulty trusting people at home, and, most recently, in the emergency department. However, his level of trust seems to have improved significantly. He continues to endorse feelings of suspicion regarding "what is going on" (without clarifying). -He will be treated with Haldol decanoate. 06/01 and 06/02 - denies paranoia or persecution today (3) Noncompliance with medication regimen: 05/31 -Has been acknowledged by the patient that he has a long history of recurrent nonadherence with psychiatric medications. He offers various reasons for this, including concern about weight gain and, also, because he does not like "how they make [him] feel." However, he does say that he feels that Haldol, is given to him in the emergency department has been very helpful and he is willing to continue to take it. -Material risks and anticipated benefits of Haldol Decanoate were reviewed with the patient, and he indicated understanding. 1 of the questions he asked was, "cannot I just take the pills when I go home?" And I explained to him that, yes, that would be an option but that we are strongly recommending that he take Haldol Decanoate so that, eventually, he will not have to take pills any longer and can just see his doctor or a nurse for a monthly injection (every 4 weeks). The patient said that he likes that idea and will adhere with the recommendation. The patient understands that 1 of the reasons that we are recommending this is his history of nonadherence. Mental Health & Subst Abuse Tx Psychiatrist Name of Psychiatrist: Referred to [facility] Therapist Name of Therapist: Referred to [facility] Electronic Maintenance Supervisor Name of Electronic Maintenance Supervisor: Referred for transplant case manager Post Discharge Appointments Primary Care Physician Name Of Family Doctor: Dr. Fuentes, [facility] Smoking Cessation Counseling Tobacco Cessation Medication Prescribed at Discharge: Offered & Prescribed Discharge Plan Discharge Items Patient Disposition: Home - Self-Care Reason For Visit: SCHIZOAFFECTIVE DISORDER Discharge Diagnosis: schizoaffective disorder bipolar type Activity: Per Instructions section Non-emergency contact: Psychiatrist, Therapist and Insulation Cupola Operator Call non-emergency contact if: you have any medication questions and your symptoms worsen Follow-up/Referrals: Georgina Hobbs MD [Primary Care Provider] - Diet: Regular Addtl Attending Provider Instructions: SPECIAL CARE INSTRUCTIONS: 1. Follow through with your scheduled aftercare appointments. If unable to keep an appointment, please call to reschedule. 2. Take your medication only as prescribed. Medication should not be changed or stopped without the approval of your doctor. In the event of worsening symptoms or concerns about side effects, contact your doctor immediately. 3. Utilize new healthy coping skills, anger management skills, and stress management skills learned during your hospitalization. Journal feelings and process them with a support person. Identify stressors or situations that may result in relapse, deterioration or inappropriate behaviors and develop a plan to deal with those issues. 4. If your coping skills are ineffective and you are in crisis, contact your outpatient providers for direction. If unable to reach your providers, please call the [facility] CRISIS LINE AT , go to the [facility] walk-in center at [address], [address], [place], or go to the closest Emergency Room. 5. Avoid alcohol and un-prescribed drugs. 6. You have been provided with the Mental Health Advance Directives Pamphlet for your review. AFTERCARE APPOINTMENTS: * Please call your insurance company prior to your scheduled appointment to confirm your aftercare providers are covered. Take your insurance information to your appointments. WHO TO CALL AND WHEN: Medical Emergencies: For questions or emergencies related to your hospital stay, please contact the Inpatient Behavioral Health Unit at [phone]. A drawing operator is on-call 12/04 for the Behavioral Health Unit for emergencies At any time you feel your situation is an emergency, you may also call 911 immediately. Pending Studies at Discharge: No Stand-Alone Forms: My [facility], Smoking Cessation, Suicide Prevention Resources Medications and DC Order Prescriptions: New haloperidol decanoate [Haldol Decanoate] 100 mg/mL solution 100 mg IM [id number] Qty: 1 RF: 0 nicotine (polacrilex) [Nicorelief] 2 mg Gum 2 mg MT PRN PRN (Reason: cravings) Qty: 1 RF: 0 benztropine 1 mg Tablet 2 mg PO BID PRN (Reason: EPS) Qty: 30 RF: 0 No Action No Known Home Medications RF: 0 Discharge Orders: Discharge Order (Routine); Ordered 06/03/20 Ordered By: Luann Waldron Admission Data Admit Date/Time: 05/31/20 16:23 Attending Provider: Isabel Machado Admit Provider: Rey Harvey Primary Care Provider: Georgina Hobbs Other Providers: Rey Harvey Other Interventions: PSY Interdisciplinary Discharge Planning Last Done: 06/03/20 10:06 Coding Level of Care Code 47707 D/C day mgmt > 30 min Diagnoses Schizoaffective disorder, bipolar type F25.0 Persecution, delusion F22 Noncompliance with medication regimen Z91.14
[2020-06-03] MEDS ORDERED: HALOPERIDOL DECANOATE INJ 50 MG/ML VIAL IM ONE (09:28)
== END 2020-06-03 13:02 | disposition home or self-care (01) | DRG 885 ==
LOC: ED 21:26 → 3S 05-31 16:23